=== PATIENT | female | born 1990 | race Caucasian/White ===

== ENCOUNTER 2017-05-18 14:01 | Inpatient (IN) | payer MEDICAID ==
--- NOTE | 2017-05-18 14:45 | EDPHY ---
H & P Stated Complaint: seizures - Personal History LMP (Females 10-55): Now Current Tetanus/Diphtheria Vaccine: Unsure Current Tetanus Diphtheria and Acellular Pertussis (TDAP): Unsure - Medical/Surgical History Hx Asthma: No Hx Chronic Respiratory Disease: No Hx Diabetes: No Hx Cardiac Disease: No Hx Renal Disease: No Hx Cirrhosis: No Hx Alcoholism: No Hx HIV/AIDS: No Hx Splenectomy or Spleen Trauma: No Other PMH: seizure disorder, bipolar, anxiety, - Social History Smoking Status: Never smoked Time Seen by Provider: 05/18/17 14:24 HPI/ROS: CHIEF COMPLAINT: Requesting mental health evaluation HISTORY OF PRESENT ILLNESS: 26-year-old female history of nonepileptic seizures , bipolar disorder, in the ER via private vehicle with her boyfriend who is also her medical power of environmental attorney who provides the majority of history. The medical power of environmental attorney describes for emergency department visits in the past 2 days, was discharged most recently this morning from seen at [facility] in [facility] where she had mental health evaluation in the emergency department or was felt that she did not meet criteria for emergency psychiatric admission. The boyfriend communicated with her psychiatrist Dr. Petey Kirby recommend she come to the emergency department at [facility] for possible psychiatric hospitalization. Boyfriend describes being in the [place] area to get away from multiple stressors related primarily to family issues. Patient has been experiencing episodic nonepileptic seizure-like activity which can be aborted by placing a cold pack on the patient or by calming her down. She has been experiencing hallucinations. Denies suicidal homicidal ideation. REVIEW OF SYSTEMS: A ten point review of systems was performed and is negative with the exception of the items mentioned in the HPI PAST MEDICAL & SURGICAL HISTORY: Bipolar disorder. Nonepileptic seizures. SOCIAL HISTORY:No alcohol or drug use PHYSICAL EXAM (Prior to examination, patient consented to physical exam, hands were washed and my usual and customary physical exam procedures followed) 1) GENERAL: Patient is wearing an eye patch over her right eye with sunglasses in place under a thick winter hat. She does not want to remove these. Well- developed, well-nourished, alert and oriented. Appears to be in no acute distress. 2) HEAD: Normocephalic, atraumatic 3) HEENT: Patient agrees to remove her sunglasses and eye patches temporarily and she has photophobia. Pupils equal, round, reactive to light bilaterally. Sclera anicteric. Nasopharynx, oropharynx, clear, no lesions. No signs of oral trauma 4) NECK: Full range of motion, no meningeal signs. 5) LUNGS: Clear auscultation bilaterally, no wheezes, no rhonchi, no retractions. 6) HEART: Regular rate and rhythm, no murmur, no heave, no gallop. 7) ABDOMEN: No guarding, no rebound, no focal tenderness n, 8) MUSCULOSKELETAL: Moving all extremities, no focal areas of tenderness, no obvious trauma. No peripheral edema or discoloration. 9) BACK: No CVA tenderness, no midline vertebral tenderness, no fluctuance, no step-off, no obvious trauma, no visual or palpable abnormality. 10) SKIN: No rash, no petechiae. 11) Psychiatric: Patient is oriented X 3, she appears anxious, she is withdraw. DIFFERENTIAL DIAGNOSIS: In no particular include but limited to pseudo-seizure , anxiety, jaylin, psychosis, (Shirley,Shaylee Marisela) Constitutional: Initial Vital Signs Temperature (C) 37 C 05/18/17 14:11 Heart Rate 87 05/18/17 14:11 Respiratory Rate 16 05/18/17 14:11 Blood Pressure 128/87 H 05/18/17 14:11 O2 Sat (%) 96 05/18/17 14:11 O2 Delivery Mode Room Air Allergies/Adverse Reactions: amoxicillin Allergy (Verified 05/18/17 14:09) Home Medications: Medication Instructions Recorded Clobazam [Onfi] 20 mg PO DAILY 05/18/17 Diazepam [Valium 10 MG (*)] 10 mg PO BID PRN 05/18/17 Ibuprofen [Motrin (*)] 200 mg PO DAILY 05/18/17 Propranolol HCl [Inderal 20mg (*)] 20 mg PO BID PRN 05/18/17 lamoTRIgine [Lamotrigine ER] 25 mg PO HS 05/18/17 Medical Decision Making ED Course/Re-evaluation: 2:52 p.m.: I have reviewed medical records from [facility] Emergency Department indicating a mental health evaluation earlier this morning at which point it was not felt that she met emergency psychiatric admission/ criteria for M1 hold. I will contact mental health promotions officer as I think that mental evaluation for emergency department is indicated at this time. 5:00 p.m.: Care turned over to Dr. Ron Somers at this time (Shaylee Watson) Patient has been evaluated by mental health and they feel the patient is psychotic. They have placed the patient on an M1 hold. They are looking for placement. Despite Ativan orally the patient is acting out and somewhat out of control. She is given Zyprexa and Benadryl IM Re-evaluation at 10:00 p.m. Patient is now sleeping (Ron Somers) Other Provider: 2300 care assumed by me from Dr. Somers pending placement. [address] Gatica. No issues during my care this patient overnight. (Milad Traore) 07:00 I assumed care of this patient at shift change. Placement pending. 07:12 Notified this patient has been accepted to N under the care of Dr. You , psychiatrist. (Chaitanya Gatica) Care Turn Over: Dr. Traore at 2300 (Ron Somers) - Data Points Laboratory Results: Laboratory Results 05/18/17 14:50 05/18/17 14:50 Medications Given: Discontinued Medications Diphenhydramine HCl (Benadryl Injection) 25 mg IM EDNOW ONE Stop: 05/18/17 21:35 Last Admin: 05/19/17 03:03 Dose: Not Given Lamotrigine (Lamictal) 25 mg PO EDNOW ONE Stop: 05/18/17 19:53 Last Admin: 05/18/17 21:13 Dose: Not Given Lorazepam (Ativan Injection) 2 mg IM EDNOW ONE Stop: 05/18/17 21:14 Last Admin: 05/18/17 21:14 Dose: 2 mg Olanzapine (Zyprexa Im Injection) 10 mg IM EDNOW ONE Stop: 05/18/17 21:33 Last Admin: 05/18/17 21:48 Dose: 10 mg Departure - Departure Clinical Impression: Acute psychosis Condition: Fair Referrals: JACINTO MENA [Primary Care Provider] - As per Instructions
[2017-05-18 15:00] LABS: PLATELET COUNT 262 10^3/uL (150-400)
[2017-05-18] MEDS ORDERED: lamoTRIgine 25 MG TAB PO ONE (19:52)
[2017-05-18] MEDS ORDERED: LORazepam 1 MG TAB PO PRN (19:53)
[2017-05-18] MEDS ORDERED: LORazepam 2 MG/ML INJ ONE (21:06)
[2017-05-18] MEDS ORDERED: LORazepam 2 MG/ML INJ IM ONE (21:13)
[2017-05-18] MEDS ORDERED: OLANZapine 10 MG/2 ML VIAL ONE ×2 (21:28→21:32)
[2017-05-18] MEDS ORDERED: OLANZapine 10 MG/2 ML VIAL IM ONE (21:32)
[2017-05-19] MEDS ORDERED: OLANZapine DISINTEGR 10 MG TAB PO PRN (10:16)
[2017-05-19] MEDS ORDERED: MAG HYDROX/AL HYDROX/SIMETH 30 ML UDCUP PO PRN (10:16)
[2017-05-19] MEDS ORDERED: MAGNESIUM HYDROXIDE 30 ML UDCUP PO PRN (10:16)
[2017-05-19] MEDS ORDERED: ACETAMINOPHEN 325 MG TAB PO PRN (10:16)
[2017-05-19] MEDS ORDERED: DIAZEPAM 5 MG TAB PO PRN ×2 (10:18→12:18)
[2017-05-19] MEDS ORDERED: hydrOXYzine HCL 25 MG TAB PO PRN ×2 (12:17→13:44)
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
[2017-05-19] MEDS ORDERED: LORazepam 1 MG TAB PO PRN (13:44)
--- NOTE | 2017-05-19 17:51 | BCON ---
[f rep st] BEHAVIORAL HEALTH CONSULTATION INTERNAL MEDICINE CONSULTATION. DATE OF CONSULTATION: 05/19/2017 REFERRING PHYSICIAN: Shirin You MD REASON FOR REFERRAL: Medical clearance for inpatient behavioral health stay. HISTORY OF PRESENT ILLNESS: This patient came to the emergency room yesterday on the advice of her outpatient psychiatrist. She had recently had 2 emergency visits in [facility] for increased nonepileptic seizure activity, as well as emotional stress and hallucinations. In [place], she was evaluated by the mental health team and admitted for further psychiatric care. She currently is without any acute complaints. PAST MEDICAL HISTORY: 1. Cholecystitis. 2. Left elbow fracture. 3. Concussions x2. PAST SURGICAL HISTORY: She has had surgical repair of the left elbow fracture, and she has had a cholecystectomy. MEDICATIONS: There is a list of medications determined by the pharmacy in the emergency department, including lorazepam, diazepam, ibuprofen, propranolol, and lamotrigine. However, per the psychiatrist note, she denies taking any recent medications. ALLERGIES: Amoxicillin. SOCIAL HISTORY: She lives with her parents. She has a 6-year-old son who is being cared for by her parents. She has a boyfriend with whom she was traveling. She is a nonsmoker and denies alcohol use. Her urine tox screen was positive for marijuana and benzodiazepines. FAMILY HISTORY: Noncontributory from the point of view of medical conditions at her current age. REVIEW OF SYSTEMS: She reports that she has had some involuntary weight loss due to a reduced appetite. She is not in pain. She denies cough or dyspnea. She denies chest pain or palpitations. She feels sleepy, having received sedating psychiatric medications. She reported, per other notes in the chart, that she had had very poor sleep over recent days to weeks. She denies dysuria or urinary frequency. Otherwise, a 10-point review of systems is negative. PHYSICAL EXAM: VITALS: Blood pressure is 121/67, heart rate is 65, respiratory rate is 17, oxygen saturation is 96% on room air, temperature is 36.7 degrees centigrade. Her weight is 95.3 kg, for a body mass index of 29.3. GENERAL: This is an overweight-appearing woman napping in bed. She slowly awakens and is overall cooperative. HEENT: There is a bandage with paper tape over her right forehead. The bandage is removed, and there is no bruising or other skin lesion under the bandage. Extraocular movements are intact. Pupils are equal, round, and reactive to light. Mucous membranes are moist. Dentition is in good condition. She has an uncrowded airway, Mallampati class 2. NECK: Supple. HEART: There is a regular rate and rhythm with no murmurs, rubs, or gallops. LUNGS: Clear to auscultation bilaterally. ABDOMEN: Benign. EXTREMITIES: There is no cyanosis, clubbing, or edema. NEUROLOGIC: She is alert and oriented to her general situation. Further orientation was not tested. Cranial nerves 2-12 are grossly intact. There is no focal weakness , and sensation is intact to light touch. LABORATORY STUDIES: Drawn in the emergency department. CBC was overall within normal limits. There was a minor decrement of relative and absolute eosinophils of no clinical significance. Serum chemistry showed an elevated chloride and a reduced carbon dioxide, again of no clinical significance. Otherwise, renal function and electrolytes were normal. Hemoglobin A1c was normal at 4.9. Liver function tests were normal. She had a low cholesterol at 136, HDL was 48, and LDL was 81. TSH was normal at 2.18. Beta hCG was negative for . Toxicology screen in the serum was negative for ethyl alcohol and, in the urine, was non-negative for marijuana and benzodiazepines but otherwise negative for substances of abuse. ASSESSMENT/RECOMMENDATIONS: 1. Psychiatric issues, pending further evaluation by Psychiatry and the mental health team. 2. Overweight with some weight loss. Consider exercising caution regarding medications which could cause further weight gain. However, metabolically she is currently quite benign. Encouraged regular exercise. 3. Weight loss due to reduced appetite, likely due to psychiatric stress. 4. Nonepileptic seizures. These are best managed nonmedically, in terms of anticonvulsants, but with attention to the psychiatric issues which underlie them. If she presents with seizures, advise seeking history of prior evaluation and diagnosis. Ideally, she would have been diagnosed in an epilepsy monitoring unit where epileptic versus nonepileptic seizures could be distinguished based on video monitoring and continuous EEG. I see no medical contraindications to this patient's continued stay on the inpatient behavioral health unit or to any psychiatric medications or procedures. Thank you very much for including me in the care of this patient, and please do not hesitate to contact me or the hospitalist service should there be need for further medical evaluation. /[id number]/MODL MTDD
[2017-05-19] MEDS ORDERED: FLU VACC QS 2017-18 (3YR+)/PF 0.5 ML SYR (FLUARIX QUAD) IM ONE (20:49)
[2017-05-19] MEDS ORDERED: OLANZapine DISINTEGR 10 MG TAB PO SCH (21:00)
[2017-05-20] MEDS ORDERED: LORazepam 1 MG TAB PO PRN (09:21)
[2017-05-20] MEDS ORDERED: LORazepam 0.5 MG TAB PO PRN (09:28)
[2017-05-20] MEDS ORDERED: IBUPROFEN 200 MG TAB PO PRN (10:31)
--- NOTE | 2017-05-20 14:10 | SOAPPROG ---
SOAP Progress Note Assessment/Plan: Assessment: Bipolar Disorder type I MRE manic severe with psychotic features Seizure Disorder (Possible Complex Partial Seizures with RUE movements and altered consciousness) and/or Conversion Disorder Cannabis Use Disorder - severe Probable Migraine headaches Patient admitted to [facility] on M-1 after four prior ER visits for erratic mood/ behavior symptoms, psychotic thinking along with episodic altered consciousness and abnormal repetitive movements. Plan: Short Term Certification - grave disability due to recent manic/impulsive symptoms, disorganization, and recent psychotic symptoms Patient needs baseline Head CT and EEG monitoring to clarify neurological diagnosis. Called report to PA in [facility] ER. Continue Olanzapine ODT/Zydis 10mg QHS, patient appears less manic and more organized Patient requested PRN Ibuprofen 200mg for headaches 05/20/17 14:17 Subjective: CC: "'a little more calm and relaxed' 'better frame of mind' Patient reports sleeping well with Olanzapine and feels improved with better mood. Reports episodes of altered consciousness and feeling tingling in RUE as well as having headache, light sensitivity in right eye. Unable to explain events leading to hospitalization. Unable to continue interview due to non- responsiveness. Objective: Vital Signs Temp Pulse Resp BP Pulse Ox 36.6 C 98 17 129/70 H 95 05/20/17 13:13 05/20/17 13:13 05/20/17 13:13 05/20/17 13:13 05/20/17 13:13 Alert WF with patch over right eye. Speech RRR, less pressured and less rapid. Mood 'a little more calm and relaxed' 'better frame of mind' Affect restricted. Thoughts briefly organized with poverty of detail and occasional loose association. Denies AH or paranoia. Poor insight. Staff report patient labile on unit - dysphoric, tearful at times, other times euphoric and singing, able to attend groups. Patient has had four witnessed episodes: Reporting feeling anxious and weak and discontinued, odd staring, shaking of RUE followed by unresponsiveness but normal vital signs. No falling or incontinence. - Time Spent With Patient Time Spent With Patient: 20 minutes - Pending Discharge Pending Discharge Within 24 Hours: No Pending Discharge Within 48 Hours: No ICD10 Worksheet Patient Problems: Problems Problem Status Onset Acute psychosis Acute Bipolar disorder (manic depression) Acute Cannabis use disorder, severe, dependence Acute Conversion disorder Acute Migraine Acute
[2017-05-20 14:30] VITALS: TEMP 97.9
[2017-05-20 15:05] LABS: CREATINE KINASE 93 IU/L (0-156)
[2017-05-20 15:32] VITALS: BP 148/88; PULSE 83; RESP 17; O2SAT 95
--- NOTE | 2017-05-21 08:48 | BDS ---
[f rep st] BEHAVIORAL HEALTH DISCHARGE SUMMARY IDENTIFICATION: This is a 26-year-old, single, white female who lives with her parents and her 6-year-old son, Calixto, in [place], [place]. Her parents reportedly have guardianship of her son. She is currently unemployed. Date of admission was May 19, 2017, date of discharge is May 20, 2017. REASON FOR ADMISSION: Please see initial psychiatric evaluation from May 19, 2017. The patient was taken to the emergency room by her boyfriend. The patient had 4 emergency room visits in the 2 weeks prior to admission for altered mental status, abnormal movements, disorganized behavior, and mood lability. The patient was admitted on an M1 hold to the inpatient unit. In the emergency room, she was agitated, grandiose, reporting auditory hallucinations. She destroyed a clock on the wall, disrobed and walked around naked. She received Ativan and Zyprexa in the emergency room. HOSPITAL COURSE: After admission, the patient did sleep overnight after getting Zyprexa and Ativan in the emergency room. Her initial evaluation she appeared labile and tangential and disorganized. She was briefly agitated with rapid pressured speech, flight of ideas, tangential thinking, other times she was dysphoric and tearful. She reported thoughts of wanting to be , but denied thoughts to hurt herself. She denied thoughts to hurt others. She minimized further auditory hallucinations after being admitted to the inpatient unit. She was agreeable to continue olanzapine 10 mg at night. Her outpatient psychiatrist reported the patient had multiple ER visits for possible seizure activity and altered mental status along with bipolar symptoms. She had been getting intermittent Ativan and Valium over the previous 2 weeks for possible seizures. On the unit the patient was witnessed to have altered mental status with abnormal mentation, disorganized thinking, abnormal staring to the left and abnormal movements on her right upper extremity. This appeared possibly consistent with a complex partial seizure disorder, even though in the emergency room she reportedly had been diagnosed with pseudoseizures or conversion disorder but referred to an outpatient neurologist. Due to having multiple episodes of possible seizure activity on the inpatient unit, the patient was then referred back to the [facility] Emergency Department with a request for her to have a neurology workup for possible epilepsy. After discharge to the [facility] Emergency Room, the emergency room reported that the patient would be admitted to [facility] in [place], [place], for EEG monitoring. Of note, prior to admission, the patient reported using cannabis daily. It is unclear if this was the cause of her auditory hallucinations. On the unit the patient did not have any violent or self-injurious behavior, did not require restraints or seclusion. PAST MEDICAL HISTORY: She has an IUD for control. She has a history of left elbow surgery, cholecystectomy, and wisdom teeth extraction as well as 2 concussions around age 10 or 11, one from a trampoline accident and one from falling off a horse. ALLERGIES: She is allergic to amoxicillin. PAST PSYCHIATRIC HISTORY: The patient had a psychiatric hospitalization at [facility] in [place] in February 2016. She was diagnosed with bipolar disorder, prescribed lithium. As an outpatient she has been seeing a private psychiatrist, Dr. Posada, and recently had been on Latuda for bipolar disorder , but had akathisia and the dose was reduced. She had intermittently been taking benzodiazepines and propranolol for akathisia the past year. CONDITION ON DISCHARGE: She is an alert white female in no acute distress. She is ambulatory, cooperative. She has had episodes of altered consciousness and staring and abnormal movements in her right upper extremity, possibly consistent with a complex partial seizure. Her thoughts are tangential and somewhat disorganized. She denies thoughts to hurt herself or others or paranoia or hallucinations at this point. Her insight appears to be limited. Her memory appears to be poor regarding recent events. Her judgment appears to be questionable. LEGAL STATUS: The patient was admitted on M1 hold, placed on short-term certification on May 20, 2017. This is to make sure the patient does not elope from the emergency room or from the medical floor while she is getting a neurology evaluation. The patient should be admitted back to [address] [place] [address] inpatient psychiatric unit at [facility] after clearance by Neurology. ADVANCED DIRECTIVES: patient does not have a formal advanced directive. Her father [phone] was notified of the patients admission and discharge. The patient requested that her boyfriend Jareth [phone] be notified of her treatment plans and be involved in her discharge planning. He was notified of her admission and discharge. LABS: Her urine tox screen is positive for cannabis and benzodiazepines, negative for other drugs of abuse and alcohol. Her serum beta HCG was negative. White blood cell count 6.4, hemoglobin 14.4, platelet count 262. Sodium 145, potassium 4.2, creatinine 0.9, glucose 86, calcium 9.3, hemoglobin A1c 4.9, calcium 9.3, AST 23, ALT 21, creatine kinase 93, triglycerides 35, LDL 81, HDL 48, TSH 2.1. PROCEDURES: None. LABS PENDING: None. DISCHARGE DIAGNOSES: Bipolar disorder type 1, most recent episode manic, severe with psychotic features. Cannabis use disorder, severe. Rule out cannabis related psychotic disorder. 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 Rule out catatonia. DISCHARGE MEDICATIONS: Olanzapine 10 mg p.o. at bedtime, Ativan 0.5 mg p.o. q.4 hours p.r.n. for anxiety. DISPOSITION: The patient is being transported to [facility] Emergency Room with recommendation the patient have a neurology evaluation for possible complex partial seizures versus conversion disorder. The patient is on a short-term certification dated May 20, 2017. She should be readmitted to [address] [place] [address] on this certification after clearance by Neurology. She is reportedly going to be transferred to [facility] for EEG monitoring. /[id number]/MODL MTDD
== END 2017-05-20 20:44 | disposition short-term general hospital (02) | DRG 885 ==
LOC: BBEH 05-19 09:47
PROVIDERS: ADMIT Psychiatry & Neurology Behavioral Neurology & Neuropsychiatry
DX: F31.2 Bipolar disorder, current episode manic severe with psychotic features (principal); G40.409 Other generalized epilepsy and epileptic syndromes, not intractable, without status epilepticus; E66.3 Overweight; F12.90 Cannabis use, unspecified, uncomplicated; Z56.0 Unemployment, unspecified
CPT/HCPCS: 80305; G0008; G0480; J2060

== ENCOUNTER 2017-05-20 14:44 | Emergency (ER) | payer MEDICAID ==
[2017-05-20] MEDS ORDERED: LORazepam 2 MG/ML INJ IVP ONE (15:03)
[2017-05-20] MEDS ORDERED: NS 1,000 ML IV ONE ×2 (15:03→19:38)
--- NOTE | 2017-05-20 15:07 | EDPHY ---
H & P Time Seen by Provider: 05/20/17 14:54 HPI/ROS: CHIEF COMPLAINT: Pseudoseizures HISTORY OF PRESENT ILLNESS: Patient is a 26-year-old female who was admitted to [address] [place] [address] being treated for bipolar. She has been on Lamictal and Ativan and recently either switched to or added Zyprexa. She states that she has been having seizures since 2016 . She states that she is having up to 5 per day and they correlate with stress. She has been stressed during her hospitalization. She states that this started a tingling in the top of her head and then she has a "shift in her vision" she then developed spasming in all of her extremities and extreme blinking. She remains conscious during these episodes. She states that she has had 5 of them today and they typically last for about 30 sec. She does not bite her tongue and does not become incontinent. She states this is because she has an extreme fear of wetting herself. She has not had a fever or any trauma. She was sent here from the psychiatric unit to rule out a seizure disorder. She is wearing a patch over her right eye. She reports chronic sensitivity in her right eye and that when exposed to light that exacerbates her she is worse. REVIEW OF SYSTEMS: Constitutional: denies: chills, fever, recent illness, recent injury EENTM: denies: blurred vision, double vision, nose congestion Respiratory: denies: cough, shortness of breath Cardiac: denies: chest pain, irregular heart rate, lightheadedness, palpitations Gastrointestinal/Abdominal: denies: abdominal pain, diarrhea, nausea, vomiting, blood streaked stools Genitourinary: denies: dysuria, frequency, hematuria, pain Musculoskeletal: denies: joint pain, muscle pain Skin: denies: lesions, rash, jaundice, bruising Neurological: See HPI denies: headache, numbness, paresthesia, tingling, dizziness, weakness Hematologic/Lymphatic: denies: blood clots, easy bleeding, easy bruising Immunologic/allergic: denies: HIV/AIDS, transplant EXAM: GENERAL: Well-appearing, well-nourished and in no acute distress. HEAD: Atraumatic, normocephalic. EYES: Pupils equal round and reactive to light, extraocular movements intact, sclera anicteric, conjunctiva are normal. ENT: TMs normal, nares patent, oropharynx clear without exudates. Moist mucous membranes. NECK: Normal range of motion, supple without lymphadenopathy or JVD. LUNGS: Breath sounds clear to auscultation bilaterally and equal. No wheezes rales or rhonchi. HEART: Regular rate and rhythm without murmurs, rubs or gallops. ABDOMEN: Soft, nontender, normoactive bowel sounds. No guarding, no rebound. No masses appreciated. BACK: No CVA tenderness, no spinal tenderness, step-offs or deformities EXTREMITIES: Normal range of motion, no pitting or edema. No clubbing or cyanosis. NEUROLOGICAL: Cranial nerves II through XII grossly intact. Normal speech, normal gait. 5/5 strength, normal movement in all extremities, normal sensation PSYCH: Normal mood, normal affect. SKIN: Warm, dry, normal turgor, no visible rashes or lesions. Source: Patient Exam Limitations: No limitations - Medical/Surgical History Hx Asthma: No Hx Chronic Respiratory Disease: No Hx Diabetes: No Hx Cardiac Disease: No Hx Renal Disease: No Hx Cirrhosis: No Hx Alcoholism: No Hx HIV/AIDS: No Hx Splenectomy or Spleen Trauma: No Other PMH: seizure disorder, bipolar, anxiety, - Family History Significant Family History: No pertinent family hx - Social History Smoking Status: Never smoked Alcohol Use: Sober Drug Use: None Constitutional: Initial Vital Signs Temperature (C) 37.1 C 05/20/17 15:09 Heart Rate 93 05/20/17 15:09 Respiratory Rate 16 05/20/17 15:09 Blood Pressure 129/81 H 05/20/17 15:09 O2 Sat (%) 97 05/20/17 15:09 O2 Delivery Mode Room Air Allergies/Adverse Reactions: amoxicillin Allergy (Verified 05/18/17 14:09) Home Medications: Medication Instructions Recorded Diazepam [Valium 10 MG (*)] 10 mg PO BID PRN 05/18/17 lamoTRIgine [Lamotrigine ER] 25 mg PO HS 05/18/17 OLANZapine DISINTEGR [ZyPREXA 10 mg PO HS tab 05/20/17 ZYDIS (*)] Medical Decision Making - Diagnostics Imaging Results: Imaging Impressions Head CT 05/20/17 15:03 Impression: No acute intracranial findings. If symptoms persist and clinical suspicion warrants, consider MRI. Findings discussed with CYNDI LAYTON 05/20/2017 at 16:04. Imaging: Discussed imaging studies w/ refinery superintendent Radiologist ED Course/Re-evaluation: I spoke with Dr. Vaz from [address] [place] [address]. He states that what he witnessed seemed more like a partial complex seizure. The patient was shaking primarily her right arm and staring and had altered mental status during the episode. She did not go completely out consciousness or fall to the ground but he is concerned about partial complex seizures. I asked him if he was requesting continuous EEG monitoring because that would require transfer to [facility]. He stated that whenever the neurologist deems necessary. 4:25 p.m. the patient's lab work and CT scan are reassuring. She has not had any events here in the ER. I discussed the case with Dr. Wyatt Morton who recommends transfer to [facility] for continuous EEG monitoring. 5:35 p.m. I discussed the case with Dr. Byrd a neurologist from [facility]. She accepts the patient to the neuro floor [address] [place] [address]. She understands that the patient is on a hold. 4:45 p.m. I discussed the case with Dr. Cohn a hospitalist at [facility] will accept. Differential Diagnosis: Partial list of the Differential diagnosis considered include but were not limited to; complex partial seizures, pseudoseizures, bipolar and although unlikely based on the history and physical exam, I also considered head injury, infection. - Data Points Laboratory Results: Laboratory Results 05/20/17 15:25 05/20/17 15:25 05/20/17 05/20/17 15:25 15:25 WBC 8.09 10^3/uL 10^3/uL (3.80-9.50) RBC 5.00 10^6/uL 10^6/uL (4.18-5.33) Hgb 14.8 g/dL g/dL (12.6-16.3) Hct 42.7 % % (38.0-47.0) MCV 85.4 fL fL (81.5-99.8) MCH 29.6 pg pg (27.9-34.1) MCHC 34.7 g/dL g/dL (32.4-36.7) RDW 13.0 % % (11.5-15.2) Plt Count 285 10^3/uL 10^3/uL (150-400) MPV 9.2 fL fL (8.7-11.7) Neut % (Auto) 69.5 % % (39.3-74.2) Lymph % (Auto) 22.7 % % (15.0-45.0) Weber % (Auto) 6.8 % % (4.5-13.0) Eos % (Auto) 0.2 % L % (0.6-7.6) Baso % (Auto) 0.6 % % (0.3-1.7) Nucleat RBC Rel Count 0.0 % % (0.0-0.2) Absolute Neuts (auto) 5.61 10^3/uL 10^3/uL (1.70-6.50) Absolute Lymphs (auto) 1.84 10^3/uL 10^3/uL (1.00-3.00) Absolute Monos (auto) 0.55 10^3/uL 10^3/uL (0.30-0.80) Absolute Eos (auto) 0.02 10^3/uL L 10^3/uL (0.03-0.40) Absolute Basos (auto) 0.05 10^3/uL 10^3/uL (0.02-0.10) Absolute Nucleated RBC 0.00 10^3/uL 10^3/uL (0-0.01) Immature Gran % 0.2 % % (0.0-1.1) Immature Gran # 0.02 10^3/uL 10^3/uL (0.00-0.10) Sodium 143 mEq/L mEq/L (135-145) Potassium 3.8 mEq/L mEq/L (3.5-5.2) Chloride 106 mEq/L mEq/L (97-110) Carbon Dioxide 22 mEq/l mEq/l (22-31) Anion Gap 15 mEq/L mEq/L (8-16) BUN 10 mg/dL mg/dL (7-23) Creatinine 0.9 mg/dL mg/dL (0.6-1.0) Estimated GFR > 60 Glucose 88 mg/dL mg/dL (70-100) Calcium 10.0 mg/dL mg/dL (8.5-10.4) Medications Given: Discontinued Medications Sodium Chloride (Ns) 1,000 mls @ 0 mls/hr IV ONCE ONE; Wide Open PRN Reason: Protocol Stop: 05/20/17 15:04 Last Admin: 05/20/17 15:29 Dose: 1,000 mls Sodium Chloride (Ns) 1,000 mls @ 0 mls/hr IV ONCE ONE PRN Reason: Wide Open Stop: 05/20/17 19:39 Last Admin: 05/20/17 19:43 Dose: 1,000 mls Lorazepam (Ativan Injection) 1 mg IVP EDNOW ONE Stop: 05/20/17 15:04 Last Admin: 05/20/17 15:29 Dose: 1 mg Departure - Departure Disposition: [facility] Clinical Impression: Pseudoseizure Bipolar disorder (manic depression) Qualifiers: Active/Remission status: currently active Current bipolar episode type: manic Current episode severity: severe Psychotic features: with psychotic features Qualified Code(s): F31.2 - Bipolar disorder, current episode manic severe with psychotic features Condition: Fair Referrals: JACINTO MENA [Primary Care Provider] - As per Instructions
[2017-05-20 15:12] VITALS: RESP 16
[2017-05-20 15:39] LABS: PLATELET COUNT 285 10^3/uL (150-400)
[2017-05-20 17:23] VITALS: BP 109/78; TEMP 96.8
[2017-05-20 18:45] VITALS: PULSE 88; O2SAT 98
== END 2017-05-20 20:46 | disposition short-term general hospital (02) ==
LOC: EDUNIT#
DX: F44.5 Conversion disorder with seizures or convulsions (principal); F31.2 Bipolar disorder, current episode manic severe with psychotic features; E86.9 Volume depletion, unspecified
CPT/HCPCS: 96374; J2060

== ENCOUNTER 2017-05-24 12:22 | Inpatient (IN) | payer MEDICAID ==
--- NOTE | 2017-05-24 14:16 | SOAPPROG ---
SOAP Progress Note Assessment/Plan: Assessment: Bipolar Disorder type I MRE manic severe with psychotic features Conversion Disorder Reviewed records from [facility] EEG lab and spoke to nurse in that lab. Patient given Propranolol 10mg BID and Lamictal 300mg QHS over past 72 hours, benzodiazepine sedatives held. Patient had multiple episodes of abnormal behavior and staring and shaking but had completely normal EEGs and is now diagnosed with Pseudo-Seizures (Conversion Disorder). Patient is being transferred back to [facility] inpatient unit. Discussed with patients outpatient psychiatrist Dr. Posada. Patient was only on 25mg of Lamictal prior to [facility] admission. Patient has been on benzodiazepines PRN for 3 weeks with some benefit, including Valium, Ativan, and Onfi. Reviewed plan to hold Lamictal due to risk of Lyle Kofi Syndrome (recent high dose of Lamictal given at [facility]), continue Olanzapine 10mg QHS for recent jaylin (was destroying property, disrobing/naked, hallucinating in ER prior to recent [facility] admit), and schedule Valium 5mg BID[address] Dr. Posada reports patient was previously stable on Latuda but complained of akathisia/anxiety symptoms Plan: Patient will be re-admitted to [facility] on Short Term Certification dated 05/20/17 for grave disability Continue Olanzapine ODT 10mg QHS Valium 5mg BID to reduce risk of anticonvulsant withdrawal and history of severe anxiety/agitation Continue Propranolol 10mg BID for history of akathisia Safety (Q15min) precautions Reviewed plan with [facility] nurses and Dr. Posada. 05/24/17 14:06 - Time Spent With Patient Time Spent With Patient: Zero - Pending Discharge Pending Discharge Within 24 Hours: No Pending Discharge Within 48 Hours: No ICD10 Worksheet Patient Problems: Problems Problem Status Onset Acute psychosis Acute Cannabis use disorder, severe, dependence Acute Conversion disorder Acute Migraine Acute
[2017-05-24] MEDS ORDERED: MAGNESIUM HYDROXIDE 30 ML UDCUP PO PRN (20:37)
[2017-05-24] MEDS ORDERED: FAMOTIDINE 20 MG TAB PO PRN (20:38)
[2017-05-24] MEDS ORDERED: PROPRANOLOL HCL 10 MG TAB PO SCH (21:00)
[2017-05-24] MEDS: OLANZapine DISINTEGR 10 MG TAB PO SCH ×2 (21:06→21:21)
[2017-05-24] MEDS: DIAZEPAM 5 MG TAB PO SCH (21:06)
[2017-05-25] MEDS: PROPRANOLOL HCL 10 MG TAB PO SCH ×2 (09:00→21:35)
[2017-05-25] MEDS: DIAZEPAM 5 MG TAB PO SCH ×2 (09:00→21:35)
[2017-05-25] MEDS: LURASIDONE HCL 20 MG TAB PO SCH ×2 (09:01→21:36)
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
[2017-05-25] MEDS: ACETAMINOPHEN 325 MG TAB PO PRN (13:20)
[2017-05-25] MEDS ORDERED: GABAPENTIN 300 MG CAP PO ONE (13:30)
[2017-05-25] MEDS ORDERED: GABAPENTIN 300 MG CAP PO PRN (13:30)
[2017-05-25] MEDS ORDERED: SUMAtriptan 25 MG TAB PO PRN (13:30)
[2017-05-25] MEDS: diphenhydrAMINE 25 MG CAP PO PRN (16:36)
[2017-05-26] MEDS: PROPRANOLOL HCL 10 MG TAB PO SCH (09:49)
[2017-05-26] MEDS: DIAZEPAM 5 MG TAB PO SCH (09:50)
[2017-05-26] MEDS: ACETAMINOPHEN 325 MG TAB PO PRN (09:50)
[2017-05-26] MEDS: LURASIDONE HCL 20 MG TAB PO SCH (10:10)
[2017-05-26] MEDS ORDERED: DIAZEPAM 5 MG TAB PO PRN (11:10)
--- NOTE | 2017-05-26 11:30 | SOAPPROG ---
SOAP Progress Note Assessment/Plan: Assessment: Bipolar Disorder type I MRE manic severe with psychotic features Conversion Disorder History of cannabis abuse Akathisia/Restlessness Migraine Headaches IUD History of left elbow surgery, cholecystectomy, 2 concussions. Patient appears manic with tangential thinking and disorganized behavior. Patient refused Latuda last night and this AM with complaints of restlessness. Patient may be a slow metabolizer of medications. Patient at risk for Lyle-Kofi Syndrome due to receiving Lamictal 300mg weekend of May 21 while in [facility] EEG monitoring unit. Plan: Short Term Certification Education about bipolar disorder Discontinue Latuda Start Seroquel 12.5mg QAM and 25mg QHS. Discussed risk of EPS, tardive dyskinesia, metabolic syndrome, defects, sedation. Schedule Gabapentin 300mg TID for migraine prevention and akathisia Change Propranolol 5mg BID PRN restlessness Change Valium 5mg BID PRN severe anxiety Benadryl 25mg PRN itching or mild anxiety Monitor mood stability, thought organization, behavior 05/26/17 11:30 Subjective: CC: "I have a lot of anxiety, I think I have akathisia, the Latuda makes me inside, what about the Lamictal, the Gabapentin helped me, can I drive on it, I think I have bipolar disorder but I'm not depressed, just anxious, I need to sleep, I need something to sleep" Patient is a poor historian due to flight of ideas and tangential, disorganized thinking. Reports she doesn't want to take Latuda and had felt she was restless from 20mg dose yesterday AM. Reports not willing to retry Bellamy, reports LE edema. Reports talking Olanzapine during hospitalization in Feb 2016 'but it made me feel tired and inside.' Reports reduced headache today and wants to take Gabapentin for Migraines. Reports feeling tired when taking propranolol. Agrees to need to take Bipolar Disorder medications but is fearful of side effects. Objective: Vital Signs Temp Pulse Resp BP Pulse Ox 36.6 C 77 16 98/65 L 98 05/26/17 04:45 05/26/17 09:49 05/26/17 04:45 05/26/17 09:49 05/26/17 04:45 Alert tall WF. Ambulatory, restless at times. Speech loud, rapid at times. Thoughts tangential with flight of ideas and loose associations. Denies SI or HI or AH. Mood 'anxious' affect labile. Limited insight. Questionable judgment. Staff report patient slept 6 hours. Took PRN Gabapentin 300mg yesterday with benefit. Took PRN Benadryl 25mg for anxiety and itching yesterday. Took AM Latuda yesterday, refused PM dose yesterday, took AM dose today. Disorganized behavior with labile affect - singing at times, other times dysphoric with bizarre behavior. - Time Spent With Patient Time Spent With Patient: 30 minutes - Pending Discharge Pending Discharge Within 24 Hours: No Pending Discharge Within 48 Hours: No ICD10 Worksheet Patient Problems: Problems Problem Status Onset Acute psychosis Acute Cannabis use disorder, severe, dependence Acute Conversion disorder Acute Migraine Acute
[2017-05-26] MEDS: QUEtiapine FUMARATE 25 MG TAB PO SCH ×2 (12:07→21:22)
[2017-05-26] MEDS: GABAPENTIN 300 MG CAP PO SCH ×2 (16:57→21:21)
[2017-05-27] MEDS: QUEtiapine FUMARATE 25 MG TAB PO SCH ×2 (08:19→21:11)
[2017-05-27] MEDS: GABAPENTIN 300 MG CAP PO SCH ×3 (08:20→21:12)
[2017-05-27] MEDS: ACETAMINOPHEN 325 MG TAB PO PRN (08:36)
--- NOTE | 2017-05-27 08:50 | SOAPPROG ---
SOAP Progress Note Assessment/Plan: Assessment: Bipolar Disorder type I MRE manic severe with psychotic features Conversion Disorder History of cannabis abuse Akathisia/Restlessness Migraine Headaches IUD History of left elbow surgery, cholecystectomy, 2 concussions. Patient may be a slow metabolizer of medications. Patient has better insight today and tolerated Seroquel yesterday. Patient has continued manic symptoms with erratic and bizarre behavior on unit and poor hygiene. Plan: Short Term Certification Education about bipolar disorder Continue Seroquel 12.5mg QAM and 25mg QHS, started 05/26/17. Consider increasing tomorrow if tolerating. Continue Gabapentin 300mg TID for migraine prevention and akathisia Continue Propranolol 5mg BID PRN restlessness; continue Valium 5mg BID PRN severe anxiety Benadryl 25mg PRN itching or mild anxiety Ibuprofen 200mg PRN migraine Monitor mood stability, thought organization, behavior Discussed [facility] for primary care after discharge in [place] Discussed low sugar diet, exercise due to risk of metabolic syndrome; dietary consult Restart Lamictal 25mg QHS. Discussed risk of life-threatening Lyle-Kofi Syndrome 05/27/17 08:53 Subjective: CC: "better but I think I'm psychosomatic." Patient reports tolerating Seroquel and slept well last night. Unable to explain episode of throwing herself on the ground yesterday then later getting up and walking away with complaints of not receiving attention/care. Requests PRN Ibuprofen 200mg for Migraine. Reports continuing to have racing thoughts and mood swings and feeling anxious. Requests Lamictal be restarted, reports feeling less agitated when taking. Denies any signs/symptoms of rash and denies itching. Denies feeling tired/sedated by Seroquel or Lamictal. Requests dietary consult. Requests help getting a PCP and independent housing after discharge. Denies paranoia or AH or violent thoughts or suicidal thoughts. Reports she was close to her aunt, who in Mar 2017 of a CVA, ' thats when I went on a downward spiral and started having seizures.' Objective: Vital Signs Temp Pulse Resp BP Pulse Ox 36.4 C 80 16 115/66 96 05/27/17 01:44 05/27/17 01:44 05/27/17 01:44 05/27/17 01:44 05/27/17 01:44 ALert WF, disheveled and malodorous and disheveled. Speech loud, pressured, rapid. Thoughts tangential with flight of ideas. Denies AH or paranoia or SI or HI. Mood "better but I think I'm psychosomatic." Affect euthymic, briefly agitated. Insight improved but limited. Judgment questionable. Staff report patient cooperative with Seroquel and Gabapentin yesterday. Had one episode of throwing herself on the ground, then getting up and walking to room when staff were not responding and complaining of not receiving attention. Patient observed with labile behavior - singing, on exercise bike, social with patients and staff, later dyphoric and anxious and tearful. - Time Spent With Patient Time Spent With Patient: 30 minutes - Pending Discharge Pending Discharge Within 24 Hours: No Pending Discharge Within 48 Hours: No ICD10 Worksheet Patient Problems: Problems Problem Status Onset Bipolar affective, manic, severe w/ psych Acute Conversion disorder Acute Migraine Acute Cannabis use disorder, severe, dependence Acute
[2017-05-27] MEDS: PROPRANOLOL HCL 10 MG TAB PO PRN (13:13)
[2017-05-27] MEDS: diphenhydrAMINE 25 MG CAP PO PRN (13:13)
[2017-05-27] MEDS ORDERED: QUEtiapine FUMARATE 25 MG TAB PO PRN (14:30)
[2017-05-27] MEDS: lamoTRIgine 25 MG TAB PO SCH (21:11)
[2017-05-28] MEDS: GABAPENTIN 300 MG CAP PO SCH ×3 (08:15→21:19)
[2017-05-28] MEDS: QUEtiapine FUMARATE 25 MG TAB PO SCH ×2 (08:15→21:18)
[2017-05-28] MEDS ORDERED: QUEtiapine FUMARATE 25 MG TAB PO ONE (11:14)
--- NOTE | 2017-05-28 11:16 | SOAPPROG ---
SOAP Progress Note Assessment/Plan: Assessment: Bipolar Disorder type I MRE manic severe with psychotic features Conversion Disorder History of cannabis abuse Akathisia/Restlessness Migraine Headaches IUD History of left elbow surgery, cholecystectomy, 2 concussions. Patient may be a slow metabolizer of medications. Patient has better insight today and tolerated Seroquel yesterday. Patient has continued manic symptoms with erratic and bizarre behavior on unit and poor hygiene. Plan: Short Term Certification Education about bipolar disorder Continue Seroquel 12.5mg QAM and 25mg QHS, started 05/26/17. Consider increasing tomorrow if tolerating. Continue Gabapentin 300mg TID for migraine prevention and akathisia Continue Propranolol 5mg BID PRN restlessness; continue Valium 5mg BID PRN severe anxiety Benadryl 25mg PRN itching or mild anxiety Ibuprofen 200mg PRN migraine Monitor mood stability, thought organization, behavior Discussed [facility] for primary care after discharge in [place] Discussed low sugar diet, exercise due to risk of metabolic syndrome; dietary consult Restart Lamictal 25mg QHS. Discussed risk of life-threatening Lyle-Kofi Syndrome 05/27/17 08:53 Objective: Vital Signs Temp Pulse Resp BP Pulse Ox 36.4 C 82 16 104/65 98 05/28/17 07:18 05/27/17 20:00 05/28/17 07:18 05/28/17 07:18 05/28/17 07:18 - Time Spent With Patient Time Spent With Patient: 30 minutes - Pending Discharge Pending Discharge Within 24 Hours: No Pending Discharge Within 48 Hours: No ICD10 Worksheet Patient Problems: Problems Problem Status Onset Bipolar affective, manic, severe w/ psych Acute Cannabis use disorder, severe, dependence Acute Conversion disorder Acute Migraine Acute
--- NOTE | 2017-05-28 11:22 | SOAPPROG ---
SOAP Progress Note Assessment/Plan: Assessment: Bipolar Disorder type I MRE manic severe with psychotic features Conversion Disorder History of cannabis abuse Akathisia/Restlessness Migraine Headaches IUD History of left elbow surgery, cholecystectomy, 2 concussions. Patient may be a slow metabolizer of medications. Reports past SE from [place] , Zyprexa, Latuda. Patient has better insight today and tolerated Seroquel for 48 hours. Patient has continued manic symptoms but appears more organized than previous. Plan: Short Term Certification Education about bipolar disorder Increase Seroquel 25mg QAM and 50mg QHS, started 05/26/17. Continue Lamictal 25mg PO QHS, discussed risk of Lyle Kofi Syndrome Continue Gabapentin 300mg TID for migraine prevention and akathisia Continue Propranolol 5mg BID PRN restlessness; continue Valium 5mg BID PRN severe anxiety Benadryl 25mg PRN itching or mild anxiety Ibuprofen 200mg PRN migraine Monitor mood stability, thought organization, behavior Discussed [facility] for primary care after discharge in [place] Discussed low sugar diet, exercise due to risk of metabolic syndrome; dietary consult Family meeting 05/28/17 11:23 Subjective: CC: "I think I am rapid cycling, I have anxiety, my aunt , I know I have high intelligence, no one knew I had akathisia, I was stressed because my aunt and I have a 6 year old." Patient reports sleeping well last night and denies feeling sedated. Requested PRN medication for anxiety this AM 'I feel stressed out and anxious.' Endorses mood swings, being hyperverbal and impulsive. Agrees to take increased Seroquel and have family meeting with father. Denies violent or suicidal thoughts. Objective: Vital Signs Temp Pulse Resp BP Pulse Ox 36.4 C 82 16 104/65 98 05/28/17 07:18 05/27/17 20:00 05/28/17 07:18 05/28/17 07:18 05/28/17 07:18 Alert WF, cooperative. Speech rapid. thoughts tangential with flight of ideas. Denies SI or HI or AH. Grandiose content. Mood 'rapid cycling, a lot of anxiety.' Anxious affect, labile at times. Limited/poor insight. Questionable judgment. Staff report patient slept 6.5 hours. Cooperative with medication. Got PRN Valium, Propranolol, Benadryl yesterday for severe agitation. Has been loud and hyperverbal on unit but able to attend groups. Intrusive with other patients. - Time Spent With Patient Time Spent With Patient: 30 minutes - Pending Discharge Pending Discharge Within 24 Hours: No Pending Discharge Within 48 Hours: No ICD10 Worksheet Patient Problems: Problems Problem Status Onset Bipolar affective, manic, severe w/ psych Acute Cannabis use disorder, severe, dependence Acute Conversion disorder Acute Migraine Acute
[2017-05-28] MEDS ORDERED: DIAZEPAM 5 MG TAB PO PRN (12:45)
[2017-05-28] MEDS: IBUPROFEN 200 MG TAB PO PRN (13:02)
[2017-05-28] MEDS: DIAZEPAM 2 MG TAB PO PRN (13:02)
[2017-05-28] MEDS: lamoTRIgine 25 MG TAB PO SCH (21:19)
[2017-05-29] MEDS: GABAPENTIN 300 MG CAP PO SCH ×3 (08:42→21:06)
[2017-05-29] MEDS: QUEtiapine FUMARATE 25 MG TAB PO SCH ×2 (08:42→21:06)
[2017-05-29] MEDS ORDERED: DIAZEPAM 2 MG TAB PO SCH (09:00)
[2017-05-29] MEDS: IBUPROFEN 200 MG TAB PO PRN (11:04)
--- NOTE | 2017-05-29 14:22 | SOAPPROG ---
SOAP Progress Note Assessment/Plan: Assessment: Per Dr. Morse's notes: Reviewed assessment and plan with patient and father during visit. Patient and father report patient has panic attacks improved with PRN Valium but possible disinhibition with PRN Ativan. Scheduled Valium 2mg QAM starting tomorrow and 2mg BID PRN panic attack. Outpatient psychiatrist Dr. Posada previously was recommending low dose scheduled benzodiazepine for panic disorder and hysterical behavior conversion disorder episodes. Original Note: SOAP Progress Note Assessment/Plan: Assessment: Bipolar Disorder type I MRE manic severe with psychotic features Conversion Disorder History of cannabis abuse Akathisia/Restlessness Migraine Headaches IUD History of left elbow surgery, cholecystectomy, 2 concussions. Patient may be a slow metabolizer of medications. Reports past SE from [place] , Zyprexa, Latuda. Patient has better insight today and tolerated Seroquel for 48 hours. Patient has continued manic symptoms but appears more organized than previous. Plan: Short Term Certification Education about bipolar disorder Increase Seroquel 25mg QAM and 50mg QHS, started 05/26/17. Continue Lamictal 25mg PO QHS, discussed risk of Lyle Kofi Syndrome Continue Gabapentin 300mg TID for migraine prevention and akathisia Continue Propranolol 5mg BID PRN restlessness; continue Valium 5mg BID PRN severe anxiety Benadryl 25mg PRN itching or mild anxiety Ibuprofen 200mg PRN migraine Monitor mood stability, thought organization, behavior Discussed [facility] for [facility] care after discharge in [place] Discussed low sugar diet, exercise due to risk of metabolic syndrome; dietary consult Family meeting Plan: 05/29/17 14:07 1. Patient reports increased sedation from increased Seroquel dose yesterday and AM Valium. She requests to change scheduled Valium from AM to Noon. She would still like to continue with PRN Valium, but hasn't used any this AM. 2. Continue on Seroquel and Lamictal for mood stabilization. 3. Will try to titrate dose of meds to more therapeutic levels, however, patient has h/o not tolerating meds well d/t SE's. She claims they are overly sedating and have caused akathisia in past. FOC confirmed to Dr. Morse on Wednesday that her OP psych MD had difficult time getting meds to high enough doses to be most effective. Subjective: Met with patient, reviewed chart and d/w staff. Patient presents more organized and less labile today. She said she felt "groggy" from increased Seroquel yesterday and Valium this AM. She would prefer to take Valium at noon rather than in AM since "that is usually when I'm most anxious" and to avoid over- sedation in AM. Patient says she is "OK" with Seroquel dose b/c "I'm hoping it will help me get discharged." Objective: Vital Signs Temp Pulse Resp BP Pulse Ox 36.3 C 82 16 118/69 97 05/29/17 07:15 05/29/17 08:00 05/29/17 08:00 05/29/17 08:00 05/29/17 08:00 MSE: Mood: "OK" Affect: Elevated, less labile than yesterday TP: Tangential, more organized TC: Denies any SI/HI, still grandiose (insists she is "expert" on everything and "smarter" than peers and staff Insight/Judgment: Poor - Time Spent With Patient Time Spent With Patient: 20" - Pending Discharge Pending Discharge Within 24 Hours: No Pending Discharge Within 48 Hours: No ICD10 Worksheet Patient Problems: Problems Problem Status Onset Bipolar affective, manic, severe w/ psych Acute Histrionic behavior Acute Panic attacks Acute Cannabis use disorder, severe, dependence Acute Conversion disorder Acute Migraine Acute
[2017-05-29] MEDS: PROPRANOLOL HCL 10 MG TAB PO PRN (15:04)
[2017-05-29] MEDS: lamoTRIgine 25 MG TAB PO SCH (21:06)
[2017-05-30] MEDS: GABAPENTIN 300 MG CAP PO SCH ×3 (08:48→21:32)
[2017-05-30] MEDS: QUEtiapine FUMARATE 25 MG TAB PO SCH ×2 (08:48→21:33)
[2017-05-30] MEDS: DIAZEPAM 2 MG TAB PO SCH ×2 (12:10→13:19)
--- NOTE | 2017-05-30 13:31 | SOAPPROG ---
SOAP Progress Note Assessment/Plan: Assessment: Per Dr. Morse's notes: Reviewed assessment and plan with patient and father during visit. Patient and father report patient has panic attacks improved with PRN Valium but possible disinhibition with PRN Ativan. Scheduled Valium 2mg QAM starting tomorrow and 2mg BID PRN panic attack. Outpatient psychiatrist Dr. Posada previously was recommending low dose scheduled benzodiazepine for panic disorder and hysterical behavior conversion disorder episodes. Original Note: SOAP Progress Note Assessment/Plan: Assessment: Bipolar Disorder type I MRE manic severe with psychotic features Conversion Disorder History of cannabis abuse Akathisia/Restlessness Migraine Headaches IUD History of left elbow surgery, cholecystectomy, 2 concussions. Patient may be a slow metabolizer of medications. Reports past SE from [place] , Zyprexa, Latuda. Patient has better insight today and tolerated Seroquel for 48 hours. Patient has continued manic symptoms but appears more organized than previous. Plan: Short Term Certification Education about bipolar disorder Increase Seroquel 25mg QAM and 50mg QHS, started 05/26/17. Continue Lamictal 25mg PO QHS, discussed risk of Lyle Kofi Syndrome Continue Gabapentin 300mg TID for migraine prevention and akathisia Continue Propranolol 5mg BID PRN restlessness; continue Valium 5mg BID PRN severe anxiety Benadryl 25mg PRN itching or mild anxiety Ibuprofen 200mg PRN migraine Monitor mood stability, thought organization, behavior Discussed [facility] for primary care after discharge in [place] Discussed low sugar diet, exercise due to risk of metabolic syndrome; dietary consult Family meeting Plan: 05/29/17 14:07 1. Patient reports increased sedation from increased Seroquel dose yesterday and AM Valium. She requests to change scheduled Valium from AM to Noon. She would still like to continue with PRN Valium, but hasn't used any this AM. 2. Continue on Seroquel and Lamictal for mood stabilization. 3. Will try to titrate dose of meds to more therapeutic levels, however, patient has h/o not tolerating meds well d/t SE's. She claims they are overly sedating and have caused akathisia in past. FOC confirmed to Dr. Morse on Wednesday that her OP psych MD had difficult time getting meds to high enough doses to be most effective. 05/30/17 13:27 1. MD attempted to increase Seroquel to more therapeutic dose, but patient says she is "too sedated" by meds and does not want dose increased. In fact, she is requesting MD lower dose of Gabapentin from 300mg to 200mg. MD encouraged patient to continue on current dose and talk with Dr. Morse about increasing Seroquel or adding another mood stabilizer, which patient doesn't want. Patient woke up for breakfast and attended goals and art therapy groups with no signs or sedation or inability to focus/attend. 2. MD did doc-to-doc review with Dr. Byrd yesterday who requested patient be on higher doses of meds in order to more effectively treat her jaylin. MD explained patient's reluctance to increase doses and her lack fo compliance with treatment in past d/t perceived SE's from medications. Subjective: Met with patient, reviewed chart and d/w staff. Patient is very bright, cheerful and alert this AM. She shows MD the collage she made in art therapy group and talks about the "connections between humans and nature...the whole world really." She says she feels "tired" from meds, but MD can see no evidence of this based on her behavior and participation in groups today. She has had no "behavior spells" over weekend. Patient has not needed any PRN Valium for anxiety or panic. Objective: Vital Signs Temp Pulse Resp BP Pulse Ox 36.3 C 79 14 87/59 L 97 05/30/17 06:59 05/30/17 06:59 05/30/17 06:59 05/30/17 06:59 05/30/17 06:59 MSE: Mood: "Good" Affect: Elevated TP: Tangential TC: Denies any SI/HI, less grandiose, no hallucinations Insight/Judgment: Poor - Time Spent With Patient Time Spent With Patient: 25" - Pending Discharge Pending Discharge Within 24 Hours: No Pending Discharge Within 48 Hours: No ICD10 Worksheet Patient Problems: Problems Problem Status Onset Bipolar affective, manic, severe w/ psych Acute Histrionic behavior Acute Panic attacks Acute Cannabis use disorder, severe, dependence Acute Conversion disorder Acute Migraine Acute
[2017-05-30 19:02] VITALS: RESP 17
[2017-05-30] MEDS: lamoTRIgine 25 MG TAB PO SCH (21:32)
[2017-05-31 06:54] VITALS: BP 94/52; PULSE 72; TEMP 97.5; O2SAT 14
--- NOTE | 2017-05-31 08:12 | SOAPPROG ---
SOAP Progress Note Assessment/Plan: Assessment: Bipolar Disorder type I MRE manic severe with psychotic features Conversion Disorder History of cannabis abuse Akathisia/Restlessness Migraine Headaches IUD History of left elbow surgery, cholecystectomy, 2 concussions. Patient may be a slow metabolizer of medications. Reports past SE from [place] , Zyprexa, Latuda. Patient appears calm and organized with improved insight and denies dangerous thoughts. Plan: Discharge home with parents; terminate certification Follow up with private psychiatrist Dr. Posada Discussed screening for metabolic syndrome in one month Reviewed signs/symptoms of bipolar disorder to monitor Discussed PCP evaluation at [facility] and Neurology follow up for Migraines Discussed monitoring for rash while taking Lamictal and risk of Lyle-Kofi Syndrome Seroquel 25mg QAM, 50mg QPM, Gabapentin 300mg TID, Lamictal 25mg QHS, Valium 2mg /day Discussed risk of sedation and driving impairment with medications Left message with father Jah Whitfield ([phone]) to come to unit to review discharge plan with patient prior to D/C 05/31/17 08:12 Subjective: CC: "Better, tired" Patient reports sleeping well but feeling tired in AM since Seroquel dose increase. Denies racing thoughts, agitation, irritability, or severe mood swings. Reports feeling calm on unit yesterday and this AM. Reports she will continue taking medications until seen by outpatient psychiatrist Dr. Posada. 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 Interested in Neurology follow up for migraine headaches. Reports overall improvement in mood stability with reduced anxiety and 'not being as excited and wound up as before.' Reports plan to discharge home with parents. Denies stiffness or slowing. Objective: Vital Signs Temp Pulse Resp BP Pulse Ox 36.4 C 72 17 94/52 L 14 L 05/31/17 06:52 05/31/17 06:52 05/30/17 19:01 05/31/17 06:52 05/31/17 06:52 Alert WF. Calm. Speech RRR, not pressured or rapid. Mood 'better, tired.' Affect euthymic and appropriate. Thoughts organized. Denies SI or HI or AH or paranoia. Good insight. Appropriate judgment. Staff report patient slept 8.5 hours overnight. Has been calm on unit, attending groups, hasn't had PRN medications >48 hours, no conversion disorder spells. No dangerous statements. Able to calmly attend groups, eating well on unit. Over weekend patient declined increased Seroquel dosing due to sedation following Seroquel dose increase prior to weekend. - Time Spent With Patient Time Spent With Patient: 20 minutes - Pending Discharge Pending Discharge Within 24 Hours: Yes Pending Discharge Within 48 Hours: No Pending Discharge Date: 05/31/17 Pending Discharge Time: 13:00 ICD10 Worksheet Patient Problems: Problems Problem Status Onset Bipolar affective, manic, severe w/ psych Acute Histrionic behavior Acute Panic attacks Acute Cannabis use disorder, severe, dependence Acute Conversion disorder Acute Migraine Acute
[2017-05-31] MEDS: QUEtiapine FUMARATE 25 MG TAB PO SCH (08:37)
[2017-05-31] MEDS: GABAPENTIN 300 MG CAP PO SCH ×2 (08:37→15:10)
[2017-05-31] MEDS: IBUPROFEN 200 MG TAB PO PRN (08:56)
[2017-05-31] MEDS: DIAZEPAM 2 MG TAB PO PRN (09:11)
--- NOTE | 2017-05-31 11:14 | BDS ---
[f rep st] BEHAVIORAL HEALTH DISCHARGE SUMMARY IDENTIFICATION: This is a 26-year-old single white female who lives with her parents and her 6-year-old son. She is currently unemployed. REASON FOR ADMISSION: The patient was transferred back to [address] [place] [address] inpatient psychiatric unit after spending the weekend at the [facility] EEG monitoring unit to evaluate for a seizure episode. Please review discharge summary for the patient from May 20, 2017. Essentially, the patient was admitted to the inpatient unit on May 19, 2017. The patient apparently had been having severe symptoms of bipolar disorder. She had been having extreme erratic behavior, disorganized thinking, severe anxiety, mood swings, bizarre behavior. She had also been having episodes that appeared to be possibly seizures, including staring, shaking, unresponsiveness, and severe disorganization. The patient's parents and her boyfriend had taken her to 4 different medical emergency departments prior to the admission to the unit here on May 19. She was admitted on an M1 hold through the [facility] emergency department. She was placed on a short-term certification for grave disability due to severe disorganization, mood lability. On May 20, 2017, due to episodes on the unit where she was staring, shaking, and unresponsive, she was sent back to the [facility] emergency department and then directly admitted to the [facility] EEG monitoring unit on May 20, 2017, to rule out a complex partial seizure disorder. The patient was then discharged from that unit back to [address] [place] [address] on Wednesday, May 24, 2017. Of note, in the emergency room prior to admission on May 19, the patient was extremely disorganized, bizarre, paranoid, reported hearing voices, and was walking around naked, disrobing, and destroyed a clock. She had gotten Ativan and Zyprexa in the emergency room as well as a dose of olanzapine on the inpatient unit during the initial stay. HOSPITAL COURSE: Upon return to the inpatient unit, the neurology evaluation from [facility] was reviewed. It showed that she had nonepileptic behavior spells , not consistent with a seizure disorder, more consistent with conversion disorder and pseudoseizures. The patient, apparently at [facility] EEG monitoring unit, had been getting 300 mg a day of Lamictal. Even though prior to that admission, she had only been getting 25 mg a day of Lamictal. They did not give her olanzapine while she was there. Her benzodiazepines that had been prescribed p.r.n. prior to admission were held as well. Upon return to the inpatient unit, the patient was initially prescribed olanzapine 10 mg at night for bipolar disorder. The patient refused to take this as she had reported feeling over-sedated by it. On the unit, she initially was extremely labile. She had rapid pressured speech with tangential speech, flight of ideas. She also had grandiose denial of illness. She was singing, dancing, had intrusive behavior. She had reduced sleep. She also had mood lability, episodes of severe anxiety, and panic attacks. She did have 1 episode after readmission to the unit where she was lying on the ground unresponsive. She had normal vital signs. No further intervention was made. She eventually got up and walked away and complained that she was not receiving enough attention from the unit staff. The patient had waxing and waning bipolar symptoms. There were times that she was dysphoric, tearful, hopeless, and overwhelmed. Other times she was having panic attacks where she was hyperventilating, anxious, complaining of headaches, and reported she was scared she was going to have a seizure. She also was euphoric at times, singing, dancing, also making grandiose statements that she was a genius and had more understanding of mental illness than the doctors or other patients. Other times she was anxious and fearful. Other times she was social on the unit. She had episodic complaints of headaches with right eye pain, phonophobia, tingling on the right side of her head. Due to the erratic behavior, mood lability, and manic symptoms, the patient was given information about the risks and benefits of multiple mood stabilizers. The patient refused to retry lithium which she had been prescribed during a psychiatric hospitalization at [facility] in [place]. The patient reports she had edema with this medication. The patient was initially offered Latuda again. She had been prescribed that for several months prior to the current admission. The patient declined to take this after one dose, as she reported this was causing restlessness and akathisia which she had before and had complained to her outpatient provider. The patient was eventually agreeable to start Seroquel at a low dose. The patient reported extreme anxiety and fear of having side effects from medication including fear of being over-sedated or having restlessness. Based on the patient's history that was reviewed with her outpatient psychiatrist, Dr. Posada, as well as with the patient, it was assessed that the patient was likely an ultra-slow metabolizer of medications and so needed lower doses of medications for bipolar disorder than the average patient. The patient insisted that she be restarted on Lamictal as she reported that since she had started this medication, she was less prone to severe depression and hopelessness. This was eventually restarted at 25 mg. The patient was given extensive information about the risk of Valdez-Kofi syndrome with Lamictal. The patient did not have any rash or itching on the unit. The patient was started on Seroquel as a mood stabilizer for manic and mixed episodes. She was started on a very low dose 12.5 mg in the morning and 25 mg at night. This was eventually increased to 25 mg in the morning and 50 mg at night. The patient had a marked improvement. She became less agitated, less labile, less pressured, less rapid with her speech, and had less dysphoria and less anxiety. She had much improved sleep patterns. She became more calm and organized and had more consistent insight into her illness. The patient's family visited several times prior to discharge. She had been calm, attending groups, eating well, sleeping well, did not appear to have severe emotional lability, had marked improvement in insight prior to discharge. She did not require any restraints or seclusion. She did not have any violent behavior or violent threats. She repeatedly denied thoughts to hurt herself and did not display any self-injurious behavior. The patient was started on gabapentin 300 mg t.i.d. for migraine headaches. The patient described either cluster or migraine headaches with severe pain in her right eye, photophobia, headache on the right side of her head. This was reduced significantly with the gabapentin. The patient was warned about the risks of psychiatric medications causing defects or miscarriage; however, she has an IUD for control. The patient received p.r.n. Benadryl and propranolol 5 mg for akathisia when she was initially on Latuda. She did not require either of those as p.r.n. for several days prior to discharge while taking Seroquel and PRN valium. The patient appeared to be having panic attacks on the unit. This history was confirmed by her outpatient psychiatrist who recommended that she be on a low dose of a benzodiazepine for panic disorder. The patient was initially given 5 mg daily, but reported excessive sedation, and so this was reduced to 2 mg daily at noon for anxiety and panic attacks. CONDITION ON DISCHARGE: She has a positive attitude toward discharge. She is an alert, tall, white female in no acute distress. She is ambulatory, cooperative, and pleasant. Her speech is regular rate and rhythm. Her thoughts are organized. She denies thoughts to hurt herself or others. She describes her mood as "good." She denies auditory hallucinations or paranoia. She has good memory, fair insight, and appropriate judgment. CONSULTS: As noted before, the patient was transferred to [facility] for EEG monitoring prior to admission. She had a dietary consult for a low carbohydrate diet. LABS: As noted in the discharge summary from May 20, she had a white blood cell count 8.0, hemoglobin 14.8, platelet count 285. Sodium 143, potassium 3.8, creatinine 0.9, glucose 88, hemoglobin A1c 4.9, AST 23, ALT 21. Triglycerides 35, LDL 81, HDL 48. TSH 2.1. Serum beta HCG was negative. Urine drug screen on May 18 was positive for benzodiazepines and cannabis. She had been reporting smoking cannabis once or twice a week and taking p.r.n. Valium prior to that admission. There are no labs pending. NICOTINE AND ALCOHOL USE DISORDER SCREENING: patient denied regular use of alcohol or nicotine prior to admission. CANNABIS USE DISORDER SCREENING: patient reported using cannabis 1-2 times a week. She was counseled that cannabis can cause anxiety and psychosis and memory problems. ADVANCED DIRECTIVE: patient did not have an advanced directive, but signed SUJIT for her care to be coordinated with her parents and boyfriend. METABOLIC SCREENING: patient was screened negative for diabetes and hyperlipidemia. She was counseled about the risk of Seroquel causing diabetes and received a dietary consult to review a low carbohydrate diet. DISCHARGE DIAGNOSES: Bipolar disorder type 1, most recent episode manic, severe with psychotic features; Cannabis use disorder, mild; Conversion disorder with pseudoseizures Migraine headaches; History of intrauterine device; History of 2 concussions as a child; History of left elbow surgery; History of cholecystectomy; Allergy to amoxicillin. DISCHARGE MEDICATIONS: Seroquel 25 mg by mouth in the morning and 50 mg by mouth at bedtime, gabapentin 300 mg p.o. t.i.d. for migraines, Valium 2 mg by mouth daily for panic attacks, Lamictal 25 mg by mouth at bedtime for bipolar disorder. DISPOSITION: The patient is leaving the unit with her parents to return home. They will assist the patient in getting her medications filled and getting to outpatient followup with Dr. Posada, her private psychiatrist. FOLLOWUP: The patient was referred to [facility] for primary care. She was counseled to get her blood glucose checked in 1 month. She has an appointment with Dr. Yazan Posada, her outpatient psychiatrist, on Wednesday. LEGAL STATUS: The patient was on a short-term certification dated May 20. This will be terminated at discharge so she will be receiving outpatient treatment on a voluntary basis. OTHER INSTRUCTIONS: The patient is instructed not to drive within 12 hours of taking diazepam. She has been counseled to stop smoking cannabis as this can cause anxiety, panic attacks, and psychosis. The patient was warned to monitor for a rash while taking Lamictal. If developing a rash, she should immediately discontinue Lamictal, take 50 mg of Benadryl, and then go to an emergency room if her rash does not improve for medical evaluation of Valdez-Kofi syndrome. /[id number]/MODL MTDD
[2017-05-31] MEDS: DIAZEPAM 2 MG TAB PO SCH (11:54)
== END 2017-05-31 15:40 | disposition home or self-care (01) | DRG 885 ==
LOC: BBEH 19:55
DX: F31.2 Bipolar disorder, current episode manic severe with psychotic features (principal); F44.5 Conversion disorder with seizures or convulsions; F12.90 Cannabis use, unspecified, uncomplicated; G43.B0 Ophthalmoplegic migraine, not intractable; G25.71 Drug induced akathisia; T43.595A Adverse effect of other antipsychotics and neuroleptics, initial encounter; Z87.820 Personal history of traumatic brain injury; Z88.1 Allergy status to other antibiotic agents; Z81.8 Family history of other mental and behavioral disorders

== ENCOUNTER 2017-06-01 18:35 | Emergency (ER) | payer MEDICAID ==
[2017-06-01 18:42] VITALS: TEMP 98.4
--- NOTE | 2017-06-01 18:53 | EDPHY ---
H & P Smoking Status: Never smoked Time Seen by Provider: 06/01/17 18:36 HPI/ROS: CHIEF COMPLAINT: Bipolar HISTORY OF PRESENT ILLNESS: 26-year-old female presents to the emergency department on M1 hold by ambulance. The patient has a history of bipolar and was recently released from the mental health unit at [facility] yesterday. She was discharged home with her parents here in [place]. She apparently got into an argument with her parents today. She states "my parents are unable to provide a stable living environment for me". Currently she has no physical complaints. Denies substance abuse. She has been taking her medications as prescribed. She denies chest pain or difficulty breathing. Denies abdominal pain. Denies headache. Denies neck or back pain. REVIEW OF SYSTEMS: Constitutional: No fever, no chills. Eyes: No double or blurry vision. ENT: No sore throat. Respiratory: No cough, no shortness of breath. Cardiac: No chest pain. Gastrointestinal: No abdominal pain, vomiting or diarrhea. Genitourinary: No dysuria. Musculoskeletal: No neck or back pain. Skin: No rashes. Neurological: No headache. (Gem Sanders) Past Medical/Surgical History: Bipolar (Gem Sanders) Social History: Single (Gem Sanders) Physical Exam: General Appearance: Alert, no distress. Mentating normally and answering questions appropriately. Eyes: Pupils equal and round. Extraocular motions are all intact. ENT: Mouth: Mucous membranes moist. Respiratory: No wheezing, rhonchi, or rales, lungs are clear to auscultation. Cardiovascular: Regular rate and rhythm. Gastrointestinal: Abdomen is soft and nontender, no masses, no rebound or guarding, bowel sounds normal. Neurological: Alert and oriented x 3, cranial nerves II through XII grossly intact Skin: Warm and dry, no rashes. Musculoskeletal: Nontender to palpate along the cervical, thoracic or lumbar spine. Neck is supple. Extremities: Full range of motion and no peripheral edema. Psychiatric: Patient is oriented X 3, there is no agitation. (Gem Sanders) Constitutional: Initial Vital Signs Temperature (C) 36.9 C 06/01/17 18:40 Heart Rate 88 06/01/17 18:40 Respiratory Rate 16 06/01/17 18:40 Blood Pressure 138/86 H 06/01/17 18:40 O2 Sat (%) 99 06/01/17 18:40 O2 Delivery Mode Room Air Allergies/Adverse Reactions: amoxicillin Allergy (Verified 05/18/17 14:09) Home Medications: Medication Instructions Recorded Diazepam [Valium 2 MG (*)] 2 mg PO DAILY PRN #4 tab 05/31/17 Gabapentin [Neurontin 300 MG (*)] 300 mg PO TID #12 cap 05/31/17 QUEtiapine FUMARATE [Seroquel 25 25 mg PO DAILY #4 tab 05/31/17 mg (*)] QUEtiapine FUMARATE [Seroquel 25 50 mg PO HS #4 tab 05/31/17 mg (*)] diphenhydrAMINE [Benadryl 25 MG 25 mg PO Q4H PRN #10 cap 05/31/17 (*)] lamoTRIgine [LaMICtal] 25 mg PO HS #4 tab 05/31/17 Medical Decision Making ED Course/Re-evaluation: 26-year-old female presents to the emergency department on M1 hold. She has already been evaluated by mental health and is here for medical clearance. Laboratory studies have been drawn and are pending. (Gem Sanders) 0607: No acute events overnight. Patient on M1 hold. Pending placement. History bipolar disorder. Recent hospitalization. Patient at 7:00 a.m[facility] a.m.-I assumed care of this patient at shift change. She has a history of bipolar disorder and presents with suicidal ideation on an M1 hold. Noon-this patient has been accepted to [facility] by Dr. Ly. EMTALA completed. (Joselin Soliman) Differential Diagnosis: Depression including functional and major depression, situational depression, medication side effect, drugs and alcohol abuse. (Gem Sanders) Other Provider: PHYSICIAN DOCUMENTATION: The patient was evaluated and managed by the Physician King Maker and myself. I have reviewed the chart and agree with the findings and plan of care as documented. In addition, I examined the patient myself. History confirmed as bipolar disorder. Physical findings as follows: Alert, calm, cooperative and eating off her food tray. Per EPS, plan for inpatient psychiatric stabilization admission. Signed out to Charles at 2221 with placement pending. I am the secondary supervising physician. (Carmelo Laurent) - Data Points Laboratory Results: Laboratory Results 06/01/17 19:05 06/01/17 19:05 06/02/17 00:15 Urine Opiates Screen NEGATIVE (NEGATIVE) Urine Barbiturates NEGATIVE (NEGATIVE) Ur Phencyclidine Scrn NEGATIVE (NEGATIVE) Ur Amphetamine Screen NEGATIVE (NEGATIVE) U Benzodiazepines Scrn NON-NEGATIVE H (NEGATIVE) Urine Cocaine Screen NEGATIVE (NEGATIVE) U Marijuana (THC) Screen NON-NEGATIVE H (NEGATIVE) Medications Given: Discontinued Medications Gabapentin (Neurontin) 300 mg PO EDNOW ONE Stop: 06/01/17 19:46 Last Admin: 06/01/17 19:47 Dose: 300 mg Gabapentin (Neurontin) 300 mg PO EDNOW ONE Stop: 06/02/17 08:28 Last Admin: 06/02/17 08:46 Dose: 300 mg Lamotrigine (Lamictal) 25 mg PO EDNOW ONE Stop: 06/01/17 21:27 Last Admin: 06/01/17 22:04 Dose: 25 mg Quetiapine Fumarate (Seroquel) 25 mg PO EDNOW ONE Stop: 06/01/17 22:01 Last Admin: 06/01/17 22:04 Dose: 25 mg Quetiapine Fumarate (Seroquel) 25 mg PO EDNOW ONE Stop: 06/02/17 08:28 Last Admin: 06/02/17 09:04 Dose: 25 mg Departure - Departure Disposition: Other Psych, Not [place] Clinical Impression: Suicidal ideation Bipolar disorder Qualifiers: Active/Remission status: currently active Current bipolar episode type: manic Current episode severity: moderate Qualified Code(s): F31.12 - Bipolar disorder , current episode manic without psychotic features, moderate Condition: Good Referrals: NONE *PRIMARY CARE P,. [Primary Care Provider] - As per Instructions
[2017-06-01 19:26] LABS: PLATELET COUNT 335 10^3/uL (150-400)
[2017-06-01] MEDS ORDERED: GABAPENTIN 300 MG CAP PO ONE (19:45)
[2017-06-01] MEDS ORDERED: lamoTRIgine 25 MG TAB PO ONE (21:26)
[2017-06-01] MEDS ORDERED: QUEtiapine FUMARATE 50 MG TAB PO ONE (21:27)
[2017-06-01] MEDS ORDERED: QUEtiapine FUMARATE 25 MG TAB PO ONE (22:00)
[2017-06-02] MEDS ORDERED: QUEtiapine FUMARATE 25 MG TAB PO ONE (08:27)
[2017-06-02] MEDS ORDERED: GABAPENTIN 300 MG CAP PO ONE (08:27)
[2017-06-02 08:45] VITALS: RESP 18
[2017-06-02 13:53] VITALS: BP 122/56; PULSE 106; O2SAT 96
== END 2017-06-02 13:53 ==
LOC: EDUNIT#
DX: F31.12 Bipolar disorder, current episode manic without psychotic features, moderate (principal); R45.851 Suicidal ideations
CPT/HCPCS: 80305; G0480

== ENCOUNTER → 2017-06-15 | Outpatient (CLI) | payer MEDICAID | LOC: FIMAGING 18:40 | PROVIDERS: ATTEND Psychiatry & Neurology Neurology | DX: R68.89 Other general symptoms and signs (principal); R51 Headache ==

== ENCOUNTER 2017-06-21 13:02 | Emergency (ER) | payer MEDICAID ==
[2017-06-21 13:31] VITALS: TEMP 98.1
--- NOTE | 2017-06-21 14:12 | EDPHY ---
H & P Stated Complaint: SI - depression restarted when boyfouzia broke up with her on . - Personal History LMP (Females 10-55): Unknown Current Tetanus/Diphtheria Vaccine: Yes Current Tetanus Diphtheria and Acellular Pertussis (TDAP): Yes - Medical/Surgical History Hx Asthma: No Hx Chronic Respiratory Disease: No Hx Diabetes: No Hx Cardiac Disease: No Hx Renal Disease: No Hx Cirrhosis: No Hx Alcoholism: No Hx HIV/AIDS: No Hx Splenectomy or Spleen Trauma: No Other PMH: seizure disorder, bipolar, anxiety, - Social History Smoking Status: Never smoked Time Seen by Provider: 06/21/17 13:08 HPI/ROS: CHIEF COMPLAINT: Depression suicidal ideation HISTORY OF PRESENT ILLNESS: 26-year-old female history of bipolar disorder arrives via ambulance for complaints of increasing anxiety, depression, suicidal ideation with plan to jump off of bridge. She broke up with her boyfriend few days ago. She missed her 7 year old child's day 2 days ago. All these combined have increased her depression anxiety as well as suicidal ideation. She denies complaints of physical discomfort. Denies self- injury. Denies homicidal ideation. REVIEW OF SYSTEMS: A ten point review of systems was performed and is negative with the exception of the items mentioned in the HPI PAST MEDICAL & SURGICAL HISTORY: Bipolar disorder SOCIAL HISTORY:Single denies acute alcohol or drug use PHYSICAL EXAM (Prior to examination, patient consented to physical exam, hands were washed and my usual and customary physical exam procedures followed) 1) GENERAL: [Well-developed, well-nourished, alert and oriented. Crying hyperventilating, appears anxious 2) HEAD: Normocephalic, atraumatic 3) HEENT: Pupils equal, round, reactive to light bilaterally. Sclera anicteric. 4) NECK: Full range of motion, no meningeal signs. 5) LUNGS: Clear auscultation bilaterally, no wheezes, no rhonchi, no retractions. 6) HEART: Regular rate and rhythm, no murmur, no heave, no gallop. 7) ABDOMEN: No guarding, no rebound, no focal tenderness, negative McBurney's, 8) MUSCULOSKELETAL: No peripheral edema or discoloration. 9) BACK: No visual or palpable abnormality. 10) SKIN: No rash, no petechiae. 11) Psychiatric: Patient is oriented X 3, she has rapid speech pattern, rocking in bed, crying, hyperventilating DIFFERENTIAL DIAGNOSIS: In no particular order including but not limited to acute anxiety, depression, suicidal ideation, homicidal ideation (Shaylee Watson Marisela) Constitutional: Initial Vital Signs Temperature (C) 36.7 C 06/21/17 13:25 Heart Rate 75 06/21/17 13:25 Respiratory Rate 16 06/21/17 13:25 Blood Pressure 123/74 H 06/21/17 13:25 O2 Sat (%) 98 06/21/17 13:25 O2 Delivery Mode Room Air Allergies/Adverse Reactions: amoxicillin Allergy (Verified 05/18/17 14:09) Home Medications: Medication Instructions Recorded QUEtiapine FUMARATE [Seroquel 25 25 mg PO DAILY #4 tab 05/31/17 mg (*)] QUEtiapine FUMARATE [Seroquel 25 50 mg PO HS #4 tab 05/31/17 mg (*)] diphenhydrAMINE [Benadryl 25 MG 25 mg PO Q4H PRN #10 cap 05/31/17 (*)] Diazepam [Valium 2 MG (*)] 1 - 4 mg PO DAILY PRN 06/21/17 Herbals/Supplements -Info Only 1 ea PO DAILY 06/21/17 Ibuprofen [Motrin (*)] 200 mg PO Q6H PRN 06/21/17 Propranolol HCl [Inderal 10mg (*)] 5 - 10 mg PO BID PRN 06/21/17 lamoTRIgine [Lamotrigine] 25 mg PO BID 06/21/17 Medical Decision Making ED Course/Re-evaluation: Patient was also seen and examined by Dr. Carmelo Laurent in the ER. Patient was placed on M1 hold in the emergency department as she presents an imminent danger to herself, dorsum suicidal ideation with plan to jump off a bridge. 5:00 p.m.: Care turned over to Dr. Carmelo Laurent in the ER awaiting mental health evaluation. (Shaylee Watson Marisela) 4515: Patient has been accepted at [facility] by Dr. Montgomery. EMTALA filled out. Appropriate transfer be set up. (Noe Campuzano) Other Provider: PHYSICIAN DOCUMENTATION: The patient was evaluated and managed by the Physician Emt/Dispatcher and myself. I have reviewed the chart and agree with the findings and plan of care as documented. In addition, I examined the patient myself at 1415. History confirmed as patient expresses suicidal ideation, history of bipolar disorder with psychotic features and PTSD.. Physical findings as follows: Patient is alert and tearful and rocking back and forth on the bed. She is placed on a mental health hold at this time for expressing suicidal ideation with a plan to jump off a bridge. 1904: per mental health park[facility] plan is for patient to go to a CSU. 1999: signed out to [facility], plan for CSU for bipolar disorder. I am the secondary supervising physician. (Carmelo Laurent) - Data Points Laboratory Results: Laboratory Results 06/21/17 14:16 06/21/17 14:16 Medications Given: Discontinued Medications Lorazepam (Ativan) 1 mg PO EDNOW ONE Stop: 06/21/17 14:44 Last Admin: 06/21/17 20:05 Dose: 1 mg Departure - Departure Disposition: Other Psych, Not [place] Clinical Impression: Suicidal ideation, Anxiety Bipolar disorder Qualifiers: Active/Remission status: currently active Current bipolar episode type: depressed Current episode severity: moderate Qualified Code(s): F31.32 - Bipolar disorder, current episode depressed, moderate Depression Qualifiers: Depression Type: other depression Qualified Code(s): F32.89 - Other specified depressive episodes Condition: Fair Referrals: NONE *PRIMARY CARE P,. [Primary Care Provider] - As per Instructions
[2017-06-21 14:35] LABS: PLATELET COUNT 265 10^3/uL (150-400)
[2017-06-21] MEDS ORDERED: LORazepam 1 MG TAB PO ONE (14:43)
[2017-06-21] MEDS ORDERED: LORazepam 1 MG TAB ONE (19:59)
[2017-06-21 23:18] VITALS: RESP 18
[2017-06-22 04:05] VITALS: BP 99/65; PULSE 75; O2SAT 95
== END 2017-06-22 04:05 ==
LOC: EDUNIT#
DX: R45.851 Suicidal ideations (principal); F31.32 Bipolar disorder, current episode depressed, moderate; F41.9 Anxiety disorder, unspecified
CPT/HCPCS: 80305; G0480

== ENCOUNTER 2017-12-01 13:23 | Inpatient (IN) | payer MEDICAID ==
[2017-12-01] MEDS ORDERED: NICOTINE POLACRILEX 2 MG GUM B PRN (19:29)
[2017-12-01] MEDS ORDERED: MAG HYDROX/AL HYDROX/SIMETH 30 ML UDCUP PO PRN (19:29)
[2017-12-01] MEDS: IBUPROFEN 200 MG TAB PO PRN (20:12)
[2017-12-01] MEDS: PRAZOSIN HCL 1 MG CAP PO SCH (20:12)
[2017-12-01] MEDS: LORazepam 0.5 MG TAB PO PRN (21:41)
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
--- NOTE | 2017-12-02 08:35 | ASMTCMCOM ---
CM Note CM Note Notes: CC met with ct. to develop MTP. Ct. presented with flat and anxious affect. She reported that she started working on trauma issues in her therapy and that it was so triggering that she became psychotic. Ct. reported that she hears voices (non-commending) and that she feels very anxious and restless. She would like her medications adjusted. She reported that she will try attending groups as much as she can. Date Signed: 12/02/2017 08:35 AM Electronically Signed By:Nelly Madera
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
[2017-12-02] MEDS: IBUPROFEN 200 MG TAB PO PRN ×2 (16:15→22:30)
[2017-12-02] MEDS ORDERED: PROPRANOLOL HCL 20 MG TAB PO SCH (21:00)
[2017-12-02] MEDS ORDERED: PRAZOSIN HCL 1 MG CAP PO SCH (21:00)
[2017-12-02] MEDS: PRAZOSIN HCL 1 MG CAP PO SCH ×2 (21:07→21:09)
[2017-12-02] MEDS: LITHIUM CARBONATE ER 300 MG TAB PO SCH ×2 (21:07→21:09)
[2017-12-02] MEDS: DIAZEPAM 2 MG TAB PO SCH (21:11)
--- NOTE | 2017-12-02 21:52 | PDMN ---
Medical Necessity Medical necessity: Pt meets inpt criteria peer order and [facility] [id number], Bipolar Disorders, Adult: Inpatient Care, 4 days. Est LOS>2MN for management of Bipolar 1 disorder, presenting in decompensated state w/clear evidence of psychosis, on M1 Hold. Admit to inpt behavioral health for ongoing eval/ treatment.
[2017-12-03] MEDS: DIAZEPAM 2 MG TAB PO SCH ×3 (07:52→21:14)
[2017-12-03] MEDS: IBUPROFEN 200 MG TAB PO PRN (09:59)
--- NOTE | 2017-12-03 10:55 | ASMTCMCOM ---
CM Note CM Note Notes: CC checked in with ct. Ct. reported that her hold is up today and that she needs to be discharged and get back home. Ct. complained that she has not received the correct medications this morning. She refused meds. She appeared labile and agitated. Date Signed: 12/03/2017 10:54 AM Electronically Signed By:Nelly Madera
[2017-12-03] MEDS: ARIPiprazole 2 MG TAB PO SCH (12:57)
--- NOTE | 2017-12-03 15:07 | SOAPPROG ---
SOAP Progress Note Assessment/Plan: Assessment: Plan: 12/03/17 15:07 Psychosis/mood: Improving. Will add Abilify at 1mg and monitor. Subjective: Pt seen, discussed with staff, interviewed in Treatment Team meeting. She is more irritable today, angry that her meds were not written properly. I sat down with her to check them and they were not, in fact, entered correctly by me. The diazepam was written as BID instead of HS and the prazosin was written as HS instead of BID. She states she is frustrated that "every single time I go to the hospital they mess up my meds like this." She eventually accepts my apology. She does not, however, agree to stay in the hospital. She insists she is not delusional/paranoid and is being harassed, spied on and poisoned. I discussed with her Dr. Posada's opinion that she try a low antipsychotic such as Abilify and she is agreeable. I reviewed in detail the potential risks, benefits and alternatives to this. Objective: Vital Signs Temp Pulse Resp BP Pulse Ox 36.8 C 67 14 92/58 L 98 12/03/17 06:00 12/03/17 06:00 12/03/17 06:00 12/03/17 06:00 12/03/17 06:00 - Time Spent With Patient Time Spent With Patient: 35" ICD10 Worksheet Patient Problems: Problems Problem Status Onset Bipolar affective, manic, severe w/ psych Acute Cannabis use disorder, severe, dependence Acute Conversion disorder Acute Histrionic behavior Acute Migraine Acute Panic attacks Acute
[2017-12-03] MEDS: diphenhydrAMINE 25 MG CAP PO PRN (21:14)
[2017-12-03] MEDS: PRAZOSIN HCL 1 MG CAP PO SCH (21:14)
[2017-12-03] MEDS: LITHIUM CARBONATE ER 300 MG TAB PO SCH (21:15)
[2017-12-04] MEDS: ARIPiprazole 2 MG TAB PO SCH (08:37)
[2017-12-04] MEDS: PRAZOSIN HCL 1 MG CAP PO SCH ×2 (08:38→21:02)
[2017-12-04] MEDS: IBUPROFEN 200 MG TAB PO PRN (08:38)
--- NOTE | 2017-12-04 17:27 | SOAPPROG ---
SOAP Progress Note Assessment/Plan: Assessment: Per Dr. Dumont's notes: 12/03/17 15:07 Psychosis/mood: Improving. Will add Abilify at 1mg and monitor. Subjective: Pt seen, discussed with staff, interviewed in Treatment Team meeting. She is more irritable today, angry that her meds were not written properly. I sat down with her to check them and they were not, in fact, entered correctly by me. The diazepam was written as BID instead of HS and the prazosin was written as HS instead of BID. She states she is frustrated that "every single time I go to the hospital they mess up my meds like this." She eventually accepts my apology. She does not, however, agree to stay in the hospital. She insists she is not delusional/paranoid and is being harassed, spied on and poisoned. I discussed with her Dr. Posada's opinion that she try a low antipsychotic such as Abilify and she is agreeable. I reviewed in detail the potential risks, benefits and alternatives to this. Plan: 12/04/17 17:21 1. Patient c/o nausea and dizziness. Blames Abilify and says she is "allergic" to all antipsychotic meds. 2. Refuses to take "any new meds" until she can "talk to my court appointed pay agent." 3. Patient denies any SI/HI. 4. [facility] Subjective: Patient lying down in bed wearing jeans and a sweatshirt. She states that she thought she was "going to " this AM b/c she had a "bad reaction" to Abilify which she agreed to take at very low dose of 1mg. Last night she c/o "allergic reaction" to staff b/c she noticed redness on her legs and arms. However, when staff evaluated her they detected no rash. Today, MD could not see any evidence of rash or swelling. She denied akathisia and difficulty swallowing or breathing. Patient had no s/s of EPS. This AM, she said she felt "like puking" but did not vomit. She also c/o "dizziness," but MD observed patient walk from her room to TV room without any balance or gait problems. Patient slept 7.5 hrs last night and denies any SI today. Objective: Vital Signs Temp Pulse Resp BP Pulse Ox 36.7 C 74 14 107/58 L 98 12/04/17 06:00 12/04/17 06:00 12/04/17 06:00 12/04/17 06:00 12/04/17 06:00 MSE: Affect: Irritable about meds Mood: "Feel like I'm going to ." TP: Tangential, irrational TC: Denies any SI/HI Insight/Judgment: Poor - Time Spent With Patient Time Spent With Patient: 15" - Pending Discharge Pending Discharge Within 24 Hours: No Pending Discharge Within 48 Hours: No ICD10 Worksheet Patient Problems: Problems Problem Status Onset Bipolar affective, manic, severe w/ psych Acute Cannabis use disorder, severe, dependence Acute Conversion disorder Acute Histrionic behavior Acute Migraine Acute Panic attacks Acute
[2017-12-04] MEDS: LITHIUM CARBONATE ER 300 MG TAB PO SCH (21:03)
[2017-12-04] MEDS: DIAZEPAM 2 MG TAB PO SCH (21:04)
[2017-12-05] MEDS: ARIPiprazole 2 MG TAB PO SCH ×2 (08:33→08:41)
[2017-12-05] MEDS: PRAZOSIN HCL 1 MG CAP PO SCH ×2 (08:33→19:38)
--- NOTE | 2017-12-05 15:32 | ASMTCMCOM ---
CM Note CM Note Notes: The patient continues to present with psychotic features and appears to be responding to internal stimuli. She reportedly had 1 hour of sleep overnight and was seen talking to herself in her room. She participates in some groups and otherwise isolates in her room during programming. She is resistant to medication. The patient stated, "how come the medication committee changed my antidepressant and dosage without consulting me?" The patient responded with some delay and perceived thought blocking; possible internal stimuli. She avoided eye contact; covering her face with her hand. She stated, "I'm sorry I'm not doing well here... I think I need to see a medical doctor..." After some silence, she stood up and left the library returning to her room. The patient's nurse was notified. Date Signed: 12/05/2017 02:53 PM Electronically Signed By:Tyesha Kumar
--- NOTE | 2017-12-05 16:40 | SOAPPROG ---
SOAP Progress Note Assessment/Plan: Assessment: Per Dr. Dumont's notes: 12/03/17 15:07 Psychosis/mood: Improving. Will add Abilify at 1mg and monitor. Subjective: Pt seen, discussed with staff, interviewed in Treatment Team meeting. She is more irritable today, angry that her meds were not written properly. I sat down with her to check them and they were not, in fact, entered correctly by me. The diazepam was written as BID instead of HS and the prazosin was written as HS instead of BID. She states she is frustrated that "every single time I go to the hospital they mess up my meds like this." She eventually accepts my apology. She does not, however, agree to stay in the hospital. She insists she is not delusional/paranoid and is being harassed, spied on and poisoned. I discussed with her Dr. Posada's opinion that she try a low antipsychotic such as Abilify and she is agreeable. I reviewed in detail the potential risks, benefits and alternatives to this. Plan: 12/04/17 17:21 1. Patient c/o nausea and dizziness. Blames Abilify and says she is "allergic" to all antipsychotic meds. 2. Refuses to take "any new meds" until she can "talk to my court appointed biology intern." 3. Patient denies any SI/HI. 4. [facility] [[email or web address]] 12/05/17 16:36 1. Patient said she "didn't want to talk" to MD. 2. Refused to take Abilify this AM. 3. Denies any SI/HI. 4. [facility] [[email or web address]] Subjective: Patient refused to take Abilify this AM. She told RN that she wouldn't take any meds unless "Dr. Yazan Posada prescribes them." RN explained that Dr. Dumont consulted with Dr. Posada and their recommendation was that patient should start taking an antipsychotic medication. Patient said she can't take antipsychotic meds b/c she is "allergic" to them. MD attempted to talk to patient, but she told MD to "go away" b/c she didn't want "to talk to you." Staff noted patient was labile and tearful this AM. When asked why, patient said she was "thinking about my aunt." Patient only slept 1 hr. last night. Staff report she has been responding to internal stimuli, talking to herself overnight. Objective: Vital Signs Temp Pulse Resp BP Pulse Ox 36.6 C 60 15 106/57 L 96 12/05/17 06:00 12/05/17 06:00 12/05/17 06:00 12/05/17 06:00 12/05/17 06:00 MSE: Affect: Labile, tearful, shaking Mood: Sad TP: Disorganized, illogical TC: Denies any SI/HI Perception: RIS Insight/Judgment: Impaired - Time Spent With Patient Time Spent With Patient: 15" - Pending Discharge Pending Discharge Within 24 Hours: No Pending Discharge Within 48 Hours: No ICD10 Worksheet Patient Problems: Problems Problem Status Onset Bipolar affective, manic, severe w/ psych Acute Cannabis use disorder, severe, dependence Acute Conversion disorder Acute Histrionic behavior Acute Migraine Acute Panic attacks Acute
[2017-12-05] MEDS: DIAZEPAM 2 MG TAB PO SCH (19:38)
[2017-12-05] MEDS: LITHIUM CARBONATE ER 300 MG TAB PO SCH (19:38)
[2017-12-06] MEDS: IBUPROFEN 200 MG TAB PO PRN (00:29)
[2017-12-06] MEDS ORDERED: HALOPERIDOL LACT 5 MG/ML INJ ONE (06:05)
[2017-12-06] MEDS ORDERED: LORazepam 2 MG/ML INJ ONE (06:06)
[2017-12-06] MEDS ORDERED: HALOPERIDOL LACT 5 MG/ML INJ IM ONE (06:15)
[2017-12-06] MEDS ORDERED: LORazepam 2 MG/ML INJ IM ONE (06:15)
[2017-12-06] MEDS: PRAZOSIN HCL 1 MG CAP PO SCH ×3 (08:43→21:06)
[2017-12-06] MEDS: ARIPiprazole 2 MG TAB PO SCH (08:44)
--- NOTE | 2017-12-06 12:25 | ASMTCMCOM ---
CM Note CM Note Notes: The patient is observed head hanging, hair covering her face upright in a seated position. She is observed in the library room assuming this posture. The patient stated, "Tell me what I have to do to leave?" "I can't feel my fingers." According to [facility] nursing staff, the patient presented with nonsensical speech that was not understandable. CC explained to the patient that the clinical team wants to see that she is stable and safe prior to discharge; including behavioral expectations; that the patient remain out of seclusion and be medication adherent. Date Signed: 12/06/2017 12:20 PM Electronically Signed By:Tyesha Kumar
--- NOTE | 2017-12-06 15:50 | SOAPPROG ---
SOAP Progress Note Assessment/Plan: Assessment: Plan: 12/03/17 15:07 Psychosis/mood: Improving. Will add Abilify at 1mg and monitor. 12/06/17 15:50 Psychosis/Mood: Doing poorly without meds. Will monitor for now, repeat Emeds if necessary. Will discuss meds further with pt tomorrow and if she continues to refuse voluntary PO antipsychotic medications, will petition for COM. This is not ideal due to her seeing a private psychiatrist in the community and not therefore being able to transfer certification or meds at d/c. Subjective: Pt seen, discussed with staff, chart reviewed. Refused Abilify over WE, stating she is allergic to it. Quite agitated overnight, disrobing, screaming. Staff unable to verbally redirect. Placed in seclusion initially by Dr. Hsieh , renewed by me early this morning due to continued agitated behaviors. Given Haldol and Ativan with good effect. Able to come out of seclusion after approx. one hour. Calmer, sedated, for the remainder of the morning. Objective: Vital Signs Temp Pulse Resp BP Pulse Ox 37.0 C 111 H 16 111/62 98 12/06/17 06:00 12/06/17 06:00 12/06/17 06:00 12/06/17 06:00 12/06/17 06:00 MSE: Calm, sedated after meds. Disheveled, but dressed approp. Affect is blunted. TP disorganized. TC reveals paranoid and somatic delusions. - Time Spent With Patient Time Spent With Patient: 25" ICD10 Worksheet Patient Problems: Problems Problem Status Onset Bipolar affective, manic, severe w/ psych Acute Cannabis use disorder, severe, dependence Acute Conversion disorder Acute Histrionic behavior Acute Migraine Acute Panic attacks Acute
[2017-12-06] MEDS: DIAZEPAM 2 MG TAB PO SCH (21:06)
[2017-12-06] MEDS: LITHIUM CARBONATE ER 300 MG TAB PO SCH (21:06)
[2017-12-07] MEDS: PRAZOSIN HCL 1 MG CAP PO SCH ×3 (08:44→20:32)
[2017-12-07] MEDS: ARIPiprazole 2 MG TAB PO SCH (08:48)
[2017-12-07] MEDS: IBUPROFEN 200 MG TAB PO PRN (09:38)
--- NOTE | 2017-12-07 16:21 | SOAPPROG ---
SOAP Progress Note Assessment/Plan: Assessment: Plan: 12/03/17 15:07 Psychosis/mood: Improving. Will add Abilify at 1mg and monitor. 12/06/17 15:50 Psychosis/Mood: Doing poorly without meds. Will monitor for now, repeat Emeds if necessary. Will discuss meds further with pt tomorrow and if she continues to refuse voluntary PO antipsychotic medications, will petition for COM. This is not ideal due to her seeing a private psychiatrist in the community and not therefore being able to transfer certification or meds at d/c. 12/07/17 16:24 Psychosis/Mood: No change, perhaps worse today. Need to proceed with involuntary meds as she is not improving without an antipsychotic medication. Subjective: Pt seen, discussed with staff. Refused Abilify again last night. She is sitting on the floor at the nurses' station, singing loudly. 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 I discussed the case with her mother as well. Pt has refused to allow her mother to visit for several days now. Her mother states she is supportive of pt taking an antipsychotic medication and has told her this. Pt states, "All I need is help with my trauma." Objective: Vital Signs Temp Pulse Resp BP Pulse Ox 36.7 C 116 H 16 115/58 L 98 12/07/17 06:00 12/07/17 06:00 12/07/17 06:00 12/07/17 06:00 12/07/17 06:00 MSE: Agitated, singing. Sitting on floor. Hands and arms are shaking coarsely , worse when pt demonstrates the tremor for me. Affect is irritable, labile. Mood is "terrible." TP is disorganized. TC reveals paranoid, somatic and bizarre delusions. - Time Spent With Patient Time Spent With Patient: 25" ICD10 Worksheet Patient Problems: Problems Problem Status Onset Bipolar affective, manic, severe w/ psych Acute Cannabis use disorder, severe, dependence Acute Conversion disorder Acute Histrionic behavior Acute Migraine Acute Panic attacks Acute
[2017-12-07] MEDS ORDERED: OLANZapine 10 MG/2 ML VIAL IM PRN ×2 (16:27→16:57)
[2017-12-07] MEDS: OLANZapine DISINTEGR 10 MG TAB PO PRN (17:30)
[2017-12-07] MEDS: diphenhydrAMINE 25 MG CAP PO PRN (18:15)
[2017-12-07] MEDS: DIAZEPAM 2 MG TAB PO SCH (20:32)
[2017-12-07] MEDS: LITHIUM CARBONATE ER 300 MG TAB PO SCH (20:32)
[2017-12-08] MEDS: LORazepam 0.5 MG TAB PO PRN (06:49)
[2017-12-08] MEDS: PRAZOSIN HCL 1 MG CAP PO SCH ×2 (08:19→20:29)
[2017-12-08] MEDS: IBUPROFEN 200 MG TAB PO PRN (08:25)
[2017-12-08] MEDS: ARIPiprazole 2 MG TAB PO SCH ×2 (08:32→10:54)
[2017-12-08] MEDS: OLANZapine DISINTEGR 10 MG TAB PO PRN (10:47)
--- NOTE | 2017-12-08 14:27 | SOAPPROG ---
SOAP Progress Note Assessment/Plan: Assessment: Plan: 12/03/17 15:07 Psychosis/mood: Improving. Will add Abilify at 1mg and monitor. 12/06/17 15:50 Psychosis/Mood: Doing poorly without meds. Will monitor for now, repeat Emeds if necessary. Will discuss meds further with pt tomorrow and if she continues to refuse voluntary PO antipsychotic medications, will petition for COM. This is not ideal due to her seeing a private psychiatrist in the community and not therefore being able to transfer certification or meds at d/c. 12/07/17 16:24 Psychosis/Mood: No change, perhaps worse today. Need to proceed with involuntary meds as she is not improving without an antipsychotic medication. 12/08/17 14:30 Psychosis/Mood: Remains quite ill. Will CCM inc: E-meds. Letter sent for COM. Subjective: Pt seen, discussed with staff. Agitated, yelling, non-compliant this morning. Required IM E-med due to severity of agitation. Good effect from IM Zyprexa. Unable to effectively interact with others. I discussed with her the plan of care inc: my intention to seek COM if she continues to refuse antipsychotics. She argues that I don't have the authority to do this. Screaming and crying by end of interview. Ultimately refused PO Abilify again today and received IM Zyprexa instead. Objective: Vital Signs Temp Pulse Resp BP Pulse Ox 36.7 C 102 H 14 106/62 98 12/08/17 06:00 12/08/17 06:00 12/08/17 06:00 12/08/17 06:00 12/08/17 06:00 MSE: Agitated, angry, oppositional, impulsive. Affect is labile, irritable. Mood is "terrible." TP disorganized. TC reveals paranoid and grandiose delusions. - Time Spent With Patient Time Spent With Patient: 25" ICD10 Worksheet Patient Problems: Problems Problem Status Onset Bipolar affective, manic, severe w/ psych Acute Cannabis use disorder, severe, dependence Acute Conversion disorder Acute Histrionic behavior Acute Migraine Acute Panic attacks Acute
[2017-12-08] MEDS: LITHIUM CARBONATE ER 300 MG TAB PO SCH (20:28)
[2017-12-08] MEDS: DIAZEPAM 2 MG TAB PO SCH (20:29)
[2017-12-09] MEDS: ARIPiprazole 2 MG TAB PO SCH (12:23)
[2017-12-09] MEDS: PRAZOSIN HCL 1 MG CAP PO SCH ×2 (12:25→20:45)
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
--- NOTE | 2017-12-09 15:19 | ASMTCMCOM ---
CM Note CM Note Notes: The patient requested that this medical technical writer stand outside the room because she has "a PTSD response every time someone comes into the room." In addition, she asked whether her fiance, Jareth, had come during visiting hours. She was observed lying down in bed. The patient made intermittent eye contact. The patient requested to be seen by the hospitalist for a bruise on her arm. [facility] staff reported that overnight she was heard calling out for Jareth and complaining of auditory hallucinations. She continues to refuse Abilify. Date Signed: 12/09/2017 03:03 PM Electronically Signed By:Tyesha Kumar
[2017-12-09] MEDS: DIAZEPAM 2 MG TAB PO SCH (20:44)
[2017-12-09] MEDS: LITHIUM CARBONATE ER 300 MG TAB PO SCH (20:44)
[2017-12-10] MEDS: PRAZOSIN HCL 1 MG CAP PO SCH ×2 (11:25→20:38)
[2017-12-10] MEDS: ARIPiprazole 2 MG TAB PO SCH (11:25)
[2017-12-10] MEDS: ACETAMINOPHEN 325 MG TAB PO PRN (11:26)
--- NOTE | 2017-12-10 12:23 | ASMTCMCOM ---
CM Note CM Note Notes: The patient refused to attend clinical treatment team rounds. Staff attempted to delay the meeting and the patient remained unable to participate. The provider has a COM hearing scheduled for Wednesday, 12/13. The patient reportedly continues to call out for "Jareth." The patient complained of bowel movement issues; reporting IBS to CC. As she continued, the patient stated, "It's just me and the wall here. I'm trying to get God out. My first psych made me believe in God. Do you believe in God?" [facility] staff reported the patient has been observed pacing in the evening and appears more calm and subdued. Date Signed: 12/10/2017 12:03 PM Electronically Signed By:Tyesha Kumar
--- NOTE | 2017-12-10 14:49 | SOAPPROG ---
SOAP Progress Note Assessment/Plan: Assessment: Plan: 12/03/17 15:07 Psychosis/mood: Improving. Will add Abilify at 1mg and monitor. 12/06/17 15:50 Psychosis/Mood: Doing poorly without meds. Will monitor for now, repeat Emeds if necessary. Will discuss meds further with pt tomorrow and if she continues to refuse voluntary PO antipsychotic medications, will petition for COM. This is not ideal due to her seeing a private psychiatrist in the community and not therefore being able to transfer certification or meds at d/c. 12/07/17 16:24 Psychosis/Mood: No change, perhaps worse today. Need to proceed with involuntary meds as she is not improving without an antipsychotic medication. 12/08/17 14:30 Psychosis/Mood: Remains quite ill. Will [facility] inc: E-meds. Letter sent for COM. 12/09/17 14:14 Psychosis/Mood: Improved with several doses of Zyprexa. I have requested second opinion from Dr. Hsieh regarding further E-meds. In process of scheduling involuntary med hearing. Will CCM, likely restart E-meds after second opinion. 12/10/17 14:50 Psychosis/Mood: Some improvement. Remains quite ill. CCM. Subjective: Pt seen, discussed with staff. Slept >8hrs last night. Took Abilify voluntarily this morning. Remains psychotic, believing her unseen boyfriend "Jareth" is hiding on the unit or out in the lobby. She will frequently yell to him. Continues to report AH's. Remains paranoid that she is being spied on and that there are people who want to kill her. Continues to refuse to interact with me beyond superficial conversation from the door to her room. Objective: Vital Signs Temp Pulse Resp BP Pulse Ox 36.8 C 70 16 109/67 97 12/10/17 06:00 12/10/17 06:00 12/10/17 06:00 12/10/17 06:00 12/10/17 06:00 MSE: Calmer, guarded. Affect is labile, though less intense. Mood is "great. " TP disorganized. TC reveals paranoid and erotomanic delusions, AH's. - Time Spent With Patient Time Spent With Patient: 15" ICD10 Worksheet Patient Problems: Problems Problem Status Onset Bipolar affective, manic, severe w/ psych Acute Cannabis use disorder, severe, dependence Acute Conversion disorder Acute Histrionic behavior Acute Migraine Acute Panic attacks Acute
[2017-12-10] MEDS: LITHIUM CARBONATE ER 300 MG TAB PO SCH (20:38)
[2017-12-10] MEDS: DIAZEPAM 2 MG TAB PO SCH (20:43)
[2017-12-11] MEDS: PRAZOSIN HCL 1 MG CAP PO SCH ×2 (08:23→21:06)
[2017-12-11] MEDS: ARIPiprazole 2 MG TAB PO SCH (08:24)
[2017-12-11] MEDS: LORazepam 0.5 MG TAB PO PRN ×2 (11:05→21:31)
[2017-12-11] MEDS: OLANZapine DISINTEGR 10 MG TAB PO PRN (11:05)
[2017-12-11] MEDS: ACETAMINOPHEN 325 MG TAB PO PRN ×2 (11:13→21:07)
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
[2017-12-11] MEDS: DIAZEPAM 2 MG TAB PO SCH (21:06)
[2017-12-11] MEDS: LITHIUM CARBONATE ER 300 MG TAB PO SCH (21:06)
[2017-12-12] MEDS: ARIPiprazole 2 MG TAB PO SCH (08:25)
[2017-12-12] MEDS: PRAZOSIN HCL 1 MG CAP PO SCH ×2 (08:25→20:56)
--- NOTE | 2017-12-12 12:57 | ASMTCMCOM ---
CM Note CM Note Notes: Pt. appeared hesitant to meet with CC, but eventually did. Pt. stated she is "wanting an update on progress with Abilify". Pt. reports she "slept like a rock". 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 Pt. stated she would like to know when she can discharge. Pt. agreed to meet with the treatment team on Wednesday. Pt. stated she doesn't think she should take valium and ativan at the same time, stating they cause nightmares. Pt. did not report any nightmares last night. Pt. stated she cannot take more than 5mg of Ativan because it "makes me aggressive". Pt. denied SI, HI, and AVH. Pt. reports paranoia from her trauma. Pt. stated she was reading the Bible earlier and it triggered her PTSD. Pt. spoke about having tape put over her mouth if she pronounced a word wrong from the Bible in the past. Pt. presents as alert, anxious, shaky, no eye contact, and somewhat guarded. Staff report pt. sleeping 8 hours, eating slightly more, and medication complaint. Date Signed: 12/12/2017 12:57 PM Electronically Signed By:Doris Holden
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
[2017-12-12] MEDS: LITHIUM CARBONATE ER 300 MG TAB PO SCH (18:09)
[2017-12-12] MEDS: DIAZEPAM 2 MG TAB PO SCH (20:56)
[2017-12-13] MEDS: LORazepam 0.5 MG TAB PO PRN ×2 (07:35→21:39)
[2017-12-13] MEDS: ARIPiprazole 2 MG TAB PO SCH (08:14)
[2017-12-13] MEDS: PRAZOSIN HCL 1 MG CAP PO SCH ×2 (08:14→21:01)
[2017-12-13] MEDS: ACETAMINOPHEN 325 MG TAB PO PRN (08:18)
--- NOTE | 2017-12-13 14:14 | ASMTCMCOM ---
CM Note CM Note Notes: CC checked in with ct. who was in bed. Ct. reported that she feels very sedated. CC asked ct. if she is planning on appearing at court this afternoon for her court ordered meds. Ct. reported that she feels too sedated to appear. Date Signed: 12/13/2017 02:13 PM Electronically Signed By:Nelly Madera
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
[2017-12-13] MEDS: DIAZEPAM 2 MG TAB PO SCH (20:59)
[2017-12-13] MEDS: LITHIUM CARBONATE ER 300 MG TAB PO SCH (21:00)
[2017-12-13] MEDS: OLANZapine DISINTEGR 10 MG TAB PO PRN (21:41)
[2017-12-14] MEDS: ARIPiprazole 2 MG TAB PO SCH (11:27)
[2017-12-14] MEDS: PRAZOSIN HCL 1 MG CAP PO SCH ×4 (11:29→20:49)
--- NOTE | 2017-12-14 13:37 | SOAPPROG ---
SOAP Progress Note Assessment/Plan: Assessment: Plan: 12/03/17 15:07 Psychosis/mood: Improving. Will add Abilify at 1mg and monitor. 12/06/17 15:50 Psychosis/Mood: Doing poorly without meds. Will monitor for now, repeat Emeds if necessary. Will discuss meds further with pt tomorrow and if she continues to refuse voluntary PO antipsychotic medications, will petition for COM. This is not ideal due to her seeing a private psychiatrist in the community and not therefore being able to transfer certification or meds at d/c. 12/07/17 16:24 Psychosis/Mood: No change, perhaps worse today. Need to proceed with involuntary meds as she is not improving without an antipsychotic medication. 12/08/17 14:30 Psychosis/Mood: Remains quite ill. Will [facility] inc: E-meds. Letter sent for COM. 12/09/17 14:14 Psychosis/Mood: Improved with several doses of Zyprexa. I have requested second opinion from Dr. Hsieh regarding further E-meds. In process of scheduling involuntary med hearing. Will CCM, likely restart E-meds after second opinion. 12/10/17 14:50 Psychosis/Mood: Some improvement. Remains quite ill. CCM. 12/14/17 13:34 Psychosis/Mood: Continued gradual improvement. CCM with increase in Abilify. Subjective: Pt seen, discussed with staff. Interviewed in Treatment Team meeting. She is able to discuss her treatment in general terms. Continues to focus on PTSD. Agreeable to increasing Abilify to 2mg. Requests meds be changed to HS. Notes no side effects from Abilify. Objective: Vital Signs Temp Pulse Resp BP Pulse Ox 36.9 C 86 16 105/56 L 96 12/14/17 06:00 12/14/17 06:00 12/14/17 06:00 12/14/17 06:00 12/14/17 06:00 MSE: Moderately anxious, closed body posture. Affect is anxious, constricted, somewhat dysphoric. Mood is "not too good." TP linear for brief periods. TC reveals continued paranoid and bizarre thoughts, AH's. - Time Spent With Patient Time Spent With Patient: 25" ICD10 Worksheet Patient Problems: Problems Problem Status Onset Bipolar affective, manic, severe w/ psych Acute Cannabis use disorder, severe, dependence Acute Conversion disorder Acute Histrionic behavior Acute Migraine Acute Panic attacks Acute
[2017-12-14] MEDS: ARIPiprazole 2 MG TAB PO ONE ×2 (19:57→20:53)
[2017-12-14] MEDS: LITHIUM CARBONATE ER 300 MG TAB PO SCH ×2 (19:57→20:49)
[2017-12-14] MEDS: DIAZEPAM 2 MG TAB PO SCH ×2 (19:58→20:49)
[2017-12-15] MEDS: PRAZOSIN HCL 1 MG CAP PO SCH ×2 (08:21→20:54)
--- NOTE | 2017-12-15 12:42 | SOAPPROG ---
SOAP Progress Note Assessment/Plan: Assessment: Plan: 12/03/17 15:07 Psychosis/mood: Improving. Will add Abilify at 1mg and monitor. 12/06/17 15:50 Psychosis/Mood: Doing poorly without meds. Will monitor for now, repeat Emeds if necessary. Will discuss meds further with pt tomorrow and if she continues to refuse voluntary PO antipsychotic medications, will petition for COM. This is not ideal due to her seeing a private psychiatrist in the community and not therefore being able to transfer certification or meds at d/c. 12/07/17 16:24 Psychosis/Mood: No change, perhaps worse today. Need to proceed with involuntary meds as she is not improving without an antipsychotic medication. 12/08/17 14:30 Psychosis/Mood: Remains quite ill. Will [facility] inc: E-meds. Letter sent for COM. 12/09/17 14:14 Psychosis/Mood: Improved with several doses of Zyprexa. I have requested second opinion from Dr. Hsieh regarding further E-meds. In process of scheduling involuntary med hearing. Will [facility], likely restart E-meds after second opinion. 12/10/17 14:50 Psychosis/Mood: Some improvement. Remains quite ill. CCM. 12/14/17 13:34 Psychosis/Mood: Continued gradual improvement. CCM with increase in Abilify. 12/15/17 12:42 Psychosis/Mood: Remains quite ill. Will [facility]. Day #2 on increased Abilify dose. Continue to build therapeutic alliance. Subjective: Pt seen, discussed with staff. She asks to meet in the [place] "because I'm not comfortable being alone with you [in my office with the door open] due to you traumatizing me." We meet in the [place] and she states she is willing to take the Abilify and wants to get home as soon as possible. She then abruptly terminates the interview without explanation. Objective: Vital Signs Temp Pulse Resp BP Pulse Ox 36.8 C 77 16 97/54 L 98 12/15/17 06:00 12/15/17 06:00 12/15/17 06:00 12/15/17 06:00 12/15/17 06:00 MSE: Adequately groomed, guarded. Affect is constricted, stable. Mood is " not good." TP disorganized. TC reveals continued paranoia, internal preoccupation. - Time Spent With Patient Time Spent With Patient: 15" ICD10 Worksheet Patient Problems: Problems Problem Status Onset Bipolar affective, manic, severe w/ psych Acute Cannabis use disorder, severe, dependence Acute Conversion disorder Acute Histrionic behavior Acute Migraine Acute Panic attacks Acute
[2017-12-15] MEDS: ARIPiprazole 2 MG TAB PO SCH (20:54)
[2017-12-15] MEDS: DIAZEPAM 2 MG TAB PO SCH (20:54)
[2017-12-15] MEDS: LITHIUM CARBONATE ER 300 MG TAB PO SCH (20:54)
[2017-12-16] MEDS: PRAZOSIN HCL 1 MG CAP PO SCH ×2 (08:21→20:16)
[2017-12-16] MEDS: ARIPiprazole 2 MG TAB PO SCH (20:15)
[2017-12-16] MEDS: DIAZEPAM 2 MG TAB PO SCH (20:16)
[2017-12-16] MEDS: LITHIUM CARBONATE ER 300 MG TAB PO SCH (20:16)
--- NOTE | 2017-12-16 20:48 | SOAPPROG ---
SOAP Progress Note Assessment/Plan: Assessment: Plan: 12/03/17 15:07 Psychosis/mood: Improving. Will add Abilify at 1mg and monitor. 12/06/17 15:50 Psychosis/Mood: Doing poorly without meds. Will monitor for now, repeat Emeds if necessary. Will discuss meds further with pt tomorrow and if she continues to refuse voluntary PO antipsychotic medications, will petition for COM. This is not ideal due to her seeing a private psychiatrist in the community and not therefore being able to transfer certification or meds at d/c. 12/07/17 16:24 Psychosis/Mood: No change, perhaps worse today. Need to proceed with involuntary meds as she is not improving without an antipsychotic medication. 12/08/17 14:30 Psychosis/Mood: Remains quite ill. Will [facility] inc: E-meds. Letter sent for [facility]. 12/09/17 14:14 Psychosis/Mood: Improved with several doses of Zyprexa. I have requested second opinion from Dr. Hsieh regarding further E-meds. In process of scheduling involuntary med hearing. Will [facility], likely restart E-meds after second opinion. 12/10/17 14:50 Psychosis/Mood: Some improvement. Remains quite ill. CCM. 12/14/17 13:34 Psychosis/Mood: Continued gradual improvement. CCM with increase in Abilify. 12/15/17 12:42 Psychosis/Mood: Remains quite ill. Will [facility]. Day #2 on increased Abilify dose. Continue to build therapeutic alliance. 12/16/17 20:47 Psychosis: REmains quite psychotic. Will increase Abilify to 5mg, monitor. Subjective: Pt seen, discussed with staff. Refused interview twice on rounds. Did say she was "perfect" in passing. Staff noted patient to be standing in the middle of her room having an animated conversation with unseen persons. Remains compliant with meds. No reported SE's. Objective: Vital Signs Temp Pulse Resp BP Pulse Ox 36.6 C 83 16 122/73 H 96 12/16/17 06:00 12/16/17 06:00 12/16/17 06:00 12/16/17 06:00 12/16/17 06:00 MSE: Distracted, internally focused. Affect is blunted to flat. TP appears disorganized. TC reveals obvious RIS. ICD10 Worksheet Patient Problems: Problems Problem Status Onset Bipolar affective, manic, severe w/ psych Acute Cannabis use disorder, severe, dependence Acute Conversion disorder Acute Histrionic behavior Acute Migraine Acute Panic attacks Acute
[2017-12-17] MEDS: LORazepam 0.5 MG TAB PO PRN (07:16)
[2017-12-17] MEDS: PRAZOSIN HCL 1 MG CAP PO SCH ×2 (08:26→21:04)
--- NOTE | 2017-12-17 16:15 | SOAPPROG ---
SOAP Progress Note Assessment/Plan: Assessment: Plan: 12/03/17 15:07 Psychosis/mood: Improving. Will add Abilify at 1mg and monitor. 12/06/17 15:50 Psychosis/Mood: Doing poorly without meds. Will monitor for now, repeat Emeds if necessary. Will discuss meds further with pt tomorrow and if she continues to refuse voluntary PO antipsychotic medications, will petition for COM. This is not ideal due to her seeing a private psychiatrist in the community and not therefore being able to transfer certification or meds at d/c. 12/07/17 16:24 Psychosis/Mood: No change, perhaps worse today. Need to proceed with involuntary meds as she is not improving without an antipsychotic medication. 12/08/17 14:30 Psychosis/Mood: Remains quite ill. Will [facility]: E-meds. Letter sent for COM. 12/09/17 14:14 Psychosis/Mood: Improved with several doses of Zyprexa. I have requested second opinion from Dr. Hsieh regarding further E-meds. In process of scheduling involuntary med hearing. Will [facility], likely restart E-meds after second opinion. 12/10/17 14:50 Psychosis/Mood: Some improvement. Remains quite ill. CCM. 12/14/17 13:34 Psychosis/Mood: Continued gradual improvement. CCM with increase in Abilify. 12/15/17 12:42 Psychosis/Mood: Remains quite ill. Will [facility]. Day #2 on increased Abilify dose. Continue to build therapeutic alliance. 12/16/17 20:47 Psychosis: REmains quite psychotic. Will increase Abilify to 5mg, monitor. 12/17/17 16:17 Psychosis: Slow improvement. Will increase Abilify to 5mg, monitor. Subjective: Pt seen, discussed with staff. Reports feeling "just fine." Continues to isolate in her room, doesn't allow me to enter due to "trauma." She continues to RIS and make odd hand gestures. Struggles to interact meaningfully with others due to internal preoccupation. Objective: Vital Signs Temp Pulse Resp BP Pulse Ox 36.9 C 85 14 98/55 L 99 12/17/17 06:00 12/17/17 06:00 12/17/17 06:00 12/17/17 06:12/17/17 06:00 MSE: Marginally groomed, guarded. Affect is constricted, anxious. Mood is "bad, no, good." TP is generally linear. TC reveals continued odd beliefs, somatic preoccupations/delusions and paranoia. AH's persist. ICD10 Worksheet Patient Problems: Problems Problem Status Onset Bipolar affective, manic, severe w/ psych Acute Cannabis use disorder, severe, dependence Acute Conversion disorder Acute Histrionic behavior Acute Migraine Acute Panic attacks Acute
[2017-12-17] MEDS: ARIPiprazole 2 MG TAB PO SCH (20:59)
[2017-12-17] MEDS: DIAZEPAM 2 MG TAB PO SCH (21:03)
[2017-12-17] MEDS: LITHIUM CARBONATE ER 300 MG TAB PO SCH (21:03)
[2017-12-18] MEDS: PRAZOSIN HCL 1 MG CAP PO SCH ×2 (08:46→21:01)
--- NOTE | 2017-12-18 16:07 | SOAPPROG ---
SOAP Progress Note Assessment/Plan: Assessment: Most recent note from Dr. Dumont: 12/14/17 13:34 Psychosis/Mood: Continued gradual improvement. CCM with increase in Abilify. 12/15/17 12:42 Psychosis/Mood: Remains quite ill. Will [facility]. Day #2 on increased Abilify dose. Continue to build therapeutic alliance. 12/16/17 20:47 Psychosis: REmains quite psychotic. Will increase Abilify to 5mg, monitor. 12/17/17 16:17 Psychosis: Slow improvement. Will increase Abilify to 5mg, monitor. PLAN: 12/18/17 16:03 1. Patient still delusional and psychotic. Claims Dr. Posada told her to "cancel all meds" b/c she's "not bipolar." 2. Slow titration of antipsychotic/mood stabilizer d/t prior NMS/EPS. 3. Ate 20% of meals. 4. Isolating in room, talking out loud to herself, making odd hand gestures like she's picking at things in the air. 5. No change to tx regimen. Subjective: Initially patient was lying in bed and refused to allow MD into room b/c she was "micro-sleeping." However, last MD saw patient in [place] and she said, "Dr. Hsieh, do you want to talk to me now?" Patient said she spoke to her outpatient psychiatrist by phone and he supposedly told her "I have PTSD and not bipolar," so he wanted to "cancel all my meds." Abruptly patient said, "I'm having a PTSD attack" and ended the conversation. Objective: Vital Signs Temp Pulse Resp BP Pulse Ox 36.9 C 85 14 98/55 L 99 12/17/17 06:00 12/17/17 06:00 12/17/17 06:00 12/17/17 06:00 12/17/17 06:00 MSE: Affect: Blunted, labile Mood: "OK" TP: Disorganized, illogical TC: Delusions, paranoia, no SI/HI Insight/Judgment: Impaired - Time Spent With Patient Time Spent With Patient: 15" - Pending Discharge Pending Discharge Within 24 Hours: No Pending Discharge Within 48 Hours: No ICD10 Worksheet Patient Problems: Problems Problem Status Onset Bipolar affective, manic, severe w/ psych Acute Cannabis use disorder, severe, dependence Acute Conversion disorder Acute Histrionic behavior Acute Migraine Acute Panic attacks Acute
[2017-12-18] MEDS: LITHIUM CARBONATE ER 300 MG TAB PO SCH (20:59)
[2017-12-18] MEDS: ARIPiprazole 2 MG TAB PO SCH (20:59)
[2017-12-18] MEDS: DIAZEPAM 2 MG TAB PO SCH (21:03)
[2017-12-19] MEDS: diphenhydrAMINE 25 MG CAP PO PRN ×3 (00:40→17:26)
[2017-12-19] MEDS: LORazepam 0.5 MG TAB PO PRN (06:20)
[2017-12-19] MEDS: PRAZOSIN HCL 1 MG CAP PO SCH ×2 (08:04→19:46)
--- NOTE | 2017-12-19 14:40 | ASMTCMCOM ---
CM Note CM Note Notes: CC has attempted to meet with pt for the past three days. Pt. has declined to meet with CC each day. Today pt stated "I don't feel very good today. Don't want to meet today." Pt. presents as disorganized, guarded, responding to internal stimuli, and lacking insight. Staff report pt. sleeping 1 hours, being medication complaint with COM, and eating minimally. Date Signed: 12/19/2017 02:40 PM Electronically Signed By:Doris Holden
--- NOTE | 2017-12-19 15:57 | SOAPPROG ---
SOAP Progress Note Assessment/Plan: Assessment: Most recent note from Dr. Dumont: 12/14/17 13:34 Psychosis/Mood: Continued gradual improvement. CCM with increase in Abilify. 12/15/17 12:42 Psychosis/Mood: Remains quite ill. Will [facility]. Day #2 on increased Abilify dose. Continue to build therapeutic alliance. 12/16/17 20:47 Psychosis: REmains quite psychotic. Will increase Abilify to 5mg, monitor. 12/17/17 16:17 Psychosis: Slow improvement. Will increase Abilify to 5mg, monitor. PLAN: 12/18/17 16:03 1. Patient still delusional and psychotic. Claims Dr. Posada told her to "cancel all meds" b/c she's "not bipolar." 2. Slow titration of antipsychotic/mood stabilizer d/t prior NMS/EPS. 3. Ate 20% of meals. 4. Isolating in room, talking out loud to herself, making odd hand gestures like she's picking at things in the air. 5. No change to tx regimen. PLAN: 12/19/17 15:54 1. No change. Psychotic, paranoid, delusional. 2. Did not eat breakfast or lunch today. Drank some fluids. 3. Slept only 1 hr last night. 4. Recommend continued titration of Abilify toward 15mg daily. Subjective: Patient continues to be psychotic, paranoid, delusional, responding to IS, experiences AH and possibly VH (observed picking at air), but denies AH/VH. When asked, patient says she is not hearing voices b/c "they're not going to my brain, they're just coming out of my mouth." Yesterday, she ate 50% of breakfast and no lunch, but today she did not eat any breakfast. She did drink some fluids. Objective: Vital Signs Temp Pulse Resp BP Pulse Ox 36.4 C 108 H 16 114/72 96 12/19/17 06:00 12/19/17 06:00 12/19/17 06:00 12/19/17 06:00 12/19/17 06:00 MSE: Affect: Constricted Mood: "OK" TP: Disorganized, illogical TC: Denies SI/HI, still paranoid and delusional Perception: RIS, denies AH/VH, but talks to herself in room alone Insight/Judgment: Impaired - Time Spent With Patient Time Spent With Patient: 15" - Pending Discharge Pending Discharge Within 24 Hours: No Pending Discharge Within 48 Hours: No ICD10 Worksheet Patient Problems: Problems Problem Status Onset Bipolar affective, manic, severe w/ psych Acute Cannabis use disorder, severe, dependence Acute Conversion disorder Acute Histrionic behavior Acute Migraine Acute Panic attacks Acute
[2017-12-19] MEDS: ACETAMINOPHEN 325 MG TAB PO PRN (17:26)
[2017-12-19] MEDS: LITHIUM CARBONATE ER 300 MG TAB PO SCH (19:45)
[2017-12-19] MEDS: ARIPiprazole 2 MG TAB PO SCH ×2 (19:46→20:05)
[2017-12-19] MEDS: DIAZEPAM 2 MG TAB PO SCH (19:46)
[2017-12-20] MEDS: PRAZOSIN HCL 1 MG CAP PO SCH ×3 (08:44→21:17)
--- NOTE | 2017-12-20 11:01 | ASMTCMCOM ---
CM Note CM Note Notes: CC confirmed family meeting tomorrow for client, doctor and CC. MOC noted, "we haven't seen her since she arrived because she has declined to see us when we come and try to visit." MOC would like the chance to speak to the doctor and lays eyes on client, etc. Family meeting confirmed for 12/21 at 11:30am Date Signed: 12/20/2017 11:00 AM Electronically Signed By:Kong Rangel
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
[2017-12-20] MEDS: ARIPiprazole 2 MG TAB PO SCH (19:59)
[2017-12-20] MEDS: DIAZEPAM 2 MG TAB PO SCH (20:00)
[2017-12-20] MEDS: LITHIUM CARBONATE ER 300 MG TAB PO SCH (20:00)
[2017-12-21] MEDS: PRAZOSIN HCL 1 MG CAP PO SCH ×2 (13:11→21:34)
--- NOTE | 2017-12-21 17:26 | SOAPPROG ---
SOAP Progress Note Assessment/Plan: Assessment: Plan: 12/03/17 15:07 Psychosis/mood: Improving. Will add Abilify at 1mg and monitor. 12/06/17 15:50 Psychosis/Mood: Doing poorly without meds. Will monitor for now, repeat Emeds if necessary. Will discuss meds further with pt tomorrow and if she continues to refuse voluntary PO antipsychotic medications, will petition for COM. This is not ideal due to her seeing a private psychiatrist in the community and not therefore being able to transfer certification or meds at d/c. 12/07/17 16:24 Psychosis/Mood: No change, perhaps worse today. Need to proceed with involuntary meds as she is not improving without an antipsychotic medication. 12/08/17 14:30 Psychosis/Mood: Remains quite ill. Will [facility]: E-meds. Letter sent for [facility]. 12/09/17 14:14 Psychosis/Mood: Improved with several doses of Zyprexa. I have requested second opinion from Dr. Hsieh regarding further E-meds. In process of scheduling involuntary med hearing. Will [facility], likely restart E-meds after second opinion. 12/10/17 14:50 Psychosis/Mood: Some improvement. Remains quite ill. CCM. 12/14/17 13:34 Psychosis/Mood: Continued gradual improvement. CCM with increase in Abilify. 12/15/17 12:42 Psychosis/Mood: Remains quite ill. Will [facility]. Day #2 on increased Abilify dose. Continue to build therapeutic alliance. 12/16/17 20:47 Psychosis: REmains quite psychotic. Will increase Abilify to 5mg, monitor. 12/17/17 16:17 Psychosis: Slow improvement. Will increase Abilify to 5mg, monitor. 12/20/17 14:09 Psychosis: Remains quite psychotic. Will increase Abilify further, monitor. I will call pt's mother to touch base about the Maintena. Will give in 24-36 hours after observing tolerability of increased oral dose. 12/21/17 17:25 Psychosis: Remains actively psychotic. [facility]. Will give Maintena tomorrow. Subjective: Pt seen, discussed with staff. Remains aloof, internally focused. Appears to respond to IS, talking to self in room. Demonstrated sexually inappropriate behaviors to male staff, disrobing. Now on ISP. Remains focused on "trauma". Tolerated increased dose of Abilify well with no evidence of EPS/akathisia. Objective: Vital Signs Temp Pulse Resp BP Pulse Ox 36.8 C 98 16 105/55 L 97 12/21/17 06:00 12/21/17 06:00 12/21/17 06:00 12/21/17 06:00 12/21/17 06:00 - Time Spent With Patient Time Spent With Patient: 15" ICD10 Worksheet Patient Problems: Problems Problem Status Onset Bipolar affective, manic, severe w/ psych Acute Cannabis use disorder, severe, dependence Acute Conversion disorder Acute Histrionic behavior Acute Migraine Acute Panic attacks Acute
[2017-12-21] MEDS ORDERED: ARIPiprazole 2 MG TAB PO SCH (17:27)
[2017-12-21] MEDS ORDERED: ARIPiprazole 5 MG TAB PO SCH (21:00)
[2017-12-21] MEDS: LITHIUM CARBONATE ER 300 MG TAB PO SCH (21:14)
[2017-12-21] MEDS: DIAZEPAM 2 MG TAB PO SCH (21:15)
[2017-12-22] MEDS: MELATONIN 3 MG TAB PO PRN ×2 (02:57→20:56)
[2017-12-22] MEDS: diphenhydrAMINE 25 MG CAP PO PRN (02:57)
[2017-12-22] MEDS ORDERED: ARIPIPRAZOLE 300 MG IM ONE (11:00)
[2017-12-22] MEDS: PRAZOSIN HCL 1 MG CAP PO SCH (11:26)
--- NOTE | 2017-12-22 12:02 | ASMTCMCOM ---
CM Note CM Note Notes: The patient appeared to be responding to internal stimuli. She reported that she speaks aloud when she is trying to sleep. The patient asked for an updated discharge plan. She reported that she had not spoken with the psychiatrist yet. She stated, "I have people who are trying to get a hold of me and it's not going through. I don't know what's going on. They are all on my list." The patient explained that a friend that she spoke with notified her of this. The patient reported that the only people she doesn't want contact with are her parents. Date Signed: 12/22/2017 12:01 PM Electronically Signed By:Tyesha Kumar
[2017-12-22] MEDS: ARIPIPRAZOLE (ABILIFY MAINTENA) 400 MG VIAL IM ONE ×2 (15:07→15:30)
--- NOTE | 2017-12-22 16:46 | SOAPPROG ---
SOAP Progress Note Assessment/Plan: Assessment: Plan: 12/03/17 15:07 Psychosis/mood: Improving. Will add Abilify at 1mg and monitor. 12/06/17 15:50 Psychosis/Mood: Doing poorly without meds. Will monitor for now, repeat Emeds if necessary. Will discuss meds further with pt tomorrow and if she continues to refuse voluntary PO antipsychotic medications, will petition for COM. This is not ideal due to her seeing a private psychiatrist in the community and not therefore being able to transfer certification or meds at d/c. 12/07/17 16:24 Psychosis/Mood: No change, perhaps worse today. Need to proceed with involuntary meds as she is not improving without an antipsychotic medication. 12/08/17 14:30 Psychosis/Mood: Remains quite ill. Will [facility] inc: E-meds. Letter sent for [facility]. 12/09/17 14:14 Psychosis/Mood: Improved with several doses of Zyprexa. I have requested second opinion from Dr. Hsieh regarding further E-meds. In process of scheduling involuntary med hearing. Will [facility], likely restart E-meds after second opinion. 12/10/17 14:50 Psychosis/Mood: Some improvement. Remains quite ill. CCM. 12/14/17 13:34 Psychosis/Mood: Continued gradual improvement. CCM with increase in Abilify. 12/15/17 12:42 Psychosis/Mood: Remains quite ill. Will [facility]. Day #2 on increased Abilify dose. Continue to build therapeutic alliance. 12/16/17 20:47 Psychosis: REmains quite psychotic. Will increase Abilify to 5mg, monitor. 12/17/17 16:17 Psychosis: Slow improvement. Will increase Abilify to 5mg, monitor. 12/20/17 14:09 Psychosis: Remains quite psychotic. Will increase Abilify further, monitor. I will call pt's mother to touch base about the Maintena. Will give in 24-36 hours after observing tolerability of increased oral dose. 12/21/17 17:25 Psychosis: Remains actively psychotic. [facility]. Will give Maintena tomorrow. 12/22/17 16:46 Psychosis: No change. Received [place] today. Hope to see improvement. Will d/c prazosin as she continues to consistently refuse this and write for PRN propranolol in case she experiences akathisia. Will decrease PO dose of Abilify to 5mg. Subjective: Pt seen, discussed with staff. Did not want to talk to me again today, referring to traumatization. I attempted to discuss again the use of the Abilify Maintena. She states she does not want to take this. I outlined the goals for this and she became agitated and asked me to leave. She was given it by RN with resistance. Objective: Vital Signs Temp Pulse Resp BP Pulse Ox 36.7 C 83 16 113/65 98 12/22/17 06:00 12/22/17 06:00 12/22/17 06:00 12/22/17 06:00 12/22/17 06:00 MSE: Moderately agitated, guarded. Affect is constricted, expansive. Mood is "terrible." TP tangential. TC reveals paranoid delusions, IOR's, AH's. AIMS exam performed by me Wednesday, Wednesday and today. All are 3 due to bilateral hand tremors. - Time Spent With Patient Time Spent With Patient: 15" ICD10 Worksheet Patient Problems: Problems Problem Status Onset Bipolar affective, manic, severe w/ psych Acute Cannabis use disorder, severe, dependence Acute Conversion disorder Acute Histrionic behavior Acute Migraine Acute Panic attacks Acute
[2017-12-22] MEDS: ARIPiprazole 5 MG TAB PO SCH (20:49)
[2017-12-22] MEDS: LITHIUM CARBONATE ER 300 MG TAB PO SCH (20:49)
[2017-12-22] MEDS: DIAZEPAM 2 MG TAB PO SCH (20:49)
[2017-12-22] MEDS: PROPRANOLOL HCL 10 MG TAB PO PRN (20:56)
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
--- NOTE | 2017-12-23 11:29 | ASMTCMCOM ---
CM Note CM Note Notes: CC checked in with ct. who appears to have a much brighter affect. Ct. was clearer about her goals and plan for discharge. However, she still has some delusional ideas. Per ct. she would like to discharge to living with grandmother. She said that in the past she transitioned to her care before moving back home. MISHEL lives in an assisted care so it is not clear if this is possible. CC left a VM for GM asking for a call back. Date Signed: 12/23/2017 11:29 AM Electronically Signed By:Nelly Madera
--- NOTE | 2017-12-23 12:46 | ASMTBHDC ---
Notes Note: Notes: Per ct. request CC called grandmother to figure out if she would be willing to have ct. stay with her upon discharge. Grandmother said that she needs to think about it. She is also going to discuss it with ct.'s parents. Grandma agreed to call back with her decision. Date Signed: 12/23/2017 12:45 PM Electronically Signed By:Nelly Madera
[2017-12-23] MEDS: PROPRANOLOL HCL 10 MG TAB PO PRN (20:38)
[2017-12-23] MEDS: ARIPiprazole 5 MG TAB PO SCH (20:38)
[2017-12-23] MEDS: LITHIUM CARBONATE ER 300 MG TAB PO SCH (20:38)
[2017-12-23] MEDS: MELATONIN 3 MG TAB PO PRN (20:38)
[2017-12-23] MEDS: DIAZEPAM 2 MG TAB PO SCH (20:39)
--- NOTE | 2017-12-24 13:11 | ASMTCMCOM ---
CM Note CM Note Notes: CC checked in with ct. and discussed discharge planning. Let ct. know that discharging to grandma's home is not an option since grandma is not able to accept her. Ct. escalated and started voicing delusional content speaking about her "" and moving her things from parents' home to a new residence with her . At this point ct.. became so agitated that she ended the conversation abruptly. Date Signed: 12/24/2017 01:09 PM Electronically Signed By:Nelly Madera
--- NOTE | 2017-12-24 13:23 | ASMTBHDC ---
Notes Note: Notes: Summary of several calls regarding ct.: CC received a call from ct.'s grandma explaining that she cannot take ct. in due to assisted living restrictions. GM also reported that she is caring for her who has middle stage dementia and that grandfather gets very agitated and anxious when ct. is around. MOC delivered a written summary with history of ct.'s care compiled by parents. At the end of the summary parents listed their expectations from her providers. Among their request is to be updated on and consulted about her discharge. They would like to be included in the discharge planning even though ct. has been refusing to sign a SUJIT for them. This CC called [facility] and explained that we are unable to share any information related to ct. without a SUJIT. This CC recommended parents look into the option of initiating legal guardianship procedures if the deem it appropriate. Date Signed: 12/24/2017 01:22 PM Electronically Signed By:Nelly Madera
--- NOTE | 2017-12-24 16:16 | SOAPPROG ---
SOAP Progress Note Assessment/Plan: Assessment: Plan: 12/03/17 15:07 Psychosis/mood: Improving. Will add Abilify at 1mg and monitor. 12/06/17 15:50 Psychosis/Mood: Doing poorly without meds. Will monitor for now, repeat Emeds if necessary. Will discuss meds further with pt tomorrow and if she continues to refuse voluntary PO antipsychotic medications, will petition for COM. This is not ideal due to her seeing a private psychiatrist in the community and not therefore being able to transfer certification or meds at d/c. 12/07/17 16:24 Psychosis/Mood: No change, perhaps worse today. Need to proceed with involuntary meds as she is not improving without an antipsychotic medication. 12/08/17 14:30 Psychosis/Mood: Remains quite ill. Will [facility]: E-meds. Letter sent for [facility]. 12/09/17 14:14 Psychosis/Mood: Improved with several doses of Zyprexa. I have requested second opinion from Dr. Hsieh regarding further E-meds. In process of scheduling involuntary med hearing. Will [facility], likely restart E-meds after second opinion. 12/10/17 14:50 Psychosis/Mood: Some improvement. Remains quite ill. CCM. 12/14/17 13:34 Psychosis/Mood: Continued gradual improvement. CCM with increase in Abilify. 12/15/17 12:42 Psychosis/Mood: Remains quite ill. Will [facility]. Day #2 on increased Abilify dose. Continue to build therapeutic alliance. 12/16/17 20:47 Psychosis: REmains quite psychotic. Will increase Abilify to 5mg, monitor. 12/17/17 16:17 Psychosis: Slow improvement. Will increase Abilify to 5mg, monitor. 12/20/17 14:09 Psychosis: Remains quite psychotic. Will increase Abilify further, monitor. I will call pt's mother to touch base about the Maintena. Will give in 24-36 hours after observing tolerability of increased oral dose. 12/21/17 17:25 Psychosis: Remains actively psychotic. [facility]. Will give Maintena tomorrow. 12/22/17 16:46 Psychosis: No change. Received EDMONDSON today. Hope to see improvement. Will d/c prazosin as she continues to consistently refuse this and write for PRN propranolol in case she experiences akathisia. Will decrease PO dose of Abilify to 5mg. 12/23/17 10:51 Psychosis: Improved. Tolerating Maintena well. CCM. 12/24/17 16:17 Psychosis: Slow improvement. Remains psychotic. [facility]. Subjective: Pt seen, discussed with staff. Remains elevated, laughing and talking to herself. Talking in an animated fashion to unseen persons in her room. No c/o' s. Pt's mother supplied some written history that I reviewed. Objective: Vital Signs Temp Pulse Resp BP Pulse Ox 36.1 C 81 16 95/50 L 96 12/24/17 06:00 12/24/17 06:00 12/24/17 06:00 12/24/17 06:00 12/24/17 06:00 MSE: Moderately agitated, laughing to herself. Internally preoccupied. Affect is elevated, expansive. Mood is "great." TP is tangential. TC reveals ongoing paranoid, erotomanic and somatic delusions as well as AH's. - Time Spent With Patient Time Spent With Patient: 15" ICD10 Worksheet Patient Problems: Problems Problem Status Onset Bipolar affective, manic, severe w/ psych Acute Cannabis use disorder, severe, dependence Acute Conversion disorder Acute Histrionic behavior Acute Migraine Acute Panic attacks Acute
[2017-12-24] MEDS: DIAZEPAM 2 MG TAB PO SCH (21:07)
[2017-12-24] MEDS: LITHIUM CARBONATE ER 300 MG TAB PO SCH (21:08)
[2017-12-24] MEDS: ARIPiprazole 5 MG TAB PO SCH (21:08)
[2017-12-24] MEDS: PROPRANOLOL HCL 10 MG TAB PO PRN (21:12)
--- NOTE | 2017-12-25 07:39 | SOAPPROG ---
SOAP Progress Note Assessment/Plan: Assessment: 27yo CF with atypical BMD, possible schizoaffective d/o. Has been with pressured speech, grandiose/erotomanic delusions, AH, paranoia, ideas of reference and disorganized, decompensating clinically with just Li as mood stabilizer, and has been refusing or bargaining down antipsychotic medications due to believing she is allergic to all. Has required seclusion and Emeds several times since admission, slowly improving with medication compliance although continues to lack insight into her need for any medications. 12/25/17 14:27 slept 9 hr. received Abilify Maintenna on 12/22. now asking to resume Prazosin which had been d/cd b/c she had been refusing consistently. apparently still with paranoia about her parents, asked that emergency contact be changed from father to P. On interview, regarding recent Abilify IM, "I'm having tardive dyskinesia (not clinically evident)...I'd like to stop the propranolol" and requests to resume Minipress for her PTSD triggers. "I have a mood disorder, I was sick and kind of delusional, that happens sometimes...I think the plan is for discharge today". 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 Reports otherwise trying to practice mindfulness to avoid PTSD triggers. MSE: slightly disheveled, casually dressed, nml speech volume and articulation, talkative, somewhat rambling, not pressured, more redirectable, affect full, mood "good" ,tp- still tangential, at times disorganized with contradictory requests, but with some periods of being more reality based and expressing a bit more insight, tc-paranoia about parents, and some somatic delusions around side effects. brief moments of what appeared to be talking to self, and declined to state if experiencing AH, admitted she would not say if she was. Denied SI. i/j both impaired PLAN: cont current meds Abilify, seems with gradual steady improvements. no med changes indicated at this time Objective: Vital Signs Temp Pulse Resp BP Pulse Ox 36.9 C 81 14 104/66 97 12/25/17 06:00 12/25/17 06:00 12/25/17 06:00 12/25/17 06:00 12/25/17 06:00 - Pending Discharge Pending Discharge Within 24 Hours: No Pending Discharge Within 48 Hours: No ICD10 Worksheet Patient Problems: Problems Problem Status Onset Bipolar affective, manic, severe w/ psych Acute Cannabis use disorder, severe, dependence Acute Conversion disorder Acute Histrionic behavior Acute Migraine Acute Panic attacks Acute
[2017-12-25] MEDS: PROPRANOLOL HCL 10 MG TAB PO PRN (09:49)
[2017-12-25] MEDS: MAGNESIUM HYDROXIDE 30 ML UDCUP PO PRN (09:52)
--- NOTE | 2017-12-25 13:34 | ASMTBHDC ---
Notes Note: Notes: Pt. reports feeling "okay". Pt. stated she is having several medication issues including, Tardiva Dyskinesia, akathisia and dysonia symptoms. Pt. stated upon discharge she will stay with her boyfriend, Jareth Florentino, but pt. cannot remember his phone number. Pt provided CC with boyfriend's email address "[email or web address]." Pt. stated her boyfriend is her medical POA. According to pt's chart from her stay in 04/2017, "pt did sign SUJIT for bf who is med proxy. bf is not POA because nothing has been taken to court.". German's previous phone number ([phone]) has since been disconnected. Pt. stated she wants to try a different medication due to "nightmare have been pretty bad". Pt. denied SI, HI, AVH and paranoia. Pt. presents as alert, calm, suspicious of CC, corrected CC's written notes, poor eye contact (watching notes), and appeared groomed. Date Signed: 12/25/2017 01:34 PM Electronically Signed By:Doris Holden
[2017-12-25] MEDS: LITHIUM CARBONATE ER 300 MG TAB PO SCH (20:52)
[2017-12-25] MEDS: ARIPiprazole 5 MG TAB PO SCH (20:52)
[2017-12-25] MEDS: DIAZEPAM 2 MG TAB PO SCH (20:52)
[2017-12-25] MEDS: MELATONIN 3 MG TAB PO PRN (21:42)
[2017-12-26] MEDS: ACETAMINOPHEN 325 MG TAB PO PRN (08:04)
[2017-12-26] MEDS: MAGNESIUM HYDROXIDE 30 ML UDCUP PO PRN (08:05)
[2017-12-26] MEDS: PROPRANOLOL HCL 10 MG TAB PO PRN ×2 (08:46→17:33)
--- NOTE | 2017-12-26 14:48 | ASMTBHDC ---
Notes Note: Notes: CC spoke with pt's mom, Nani Whitfield ([phone]). MOC visited today and stated pt. appears "still pretty delusional". MOC stated pt. was "talking to ex-boyfriend in her head". MOC stated pt's ex-boyfriend Jareth "wants nothing to do with her". MOC stated she does not want pt. to discharge to pt's grandparents, as they are not able to fully care for pt. MOC stated pt. can return home, but she wants to wait for pt. "to be more stable". MOC stated she would like to have a family meeting, and possibly include pt's M[facility] therapist, prior to discharge. MOC stated she will work on rules for pt. for coming home. MOC stated pt. "is very clever", adding pt's MD stated pt is "very convincing". MOC spoke about getting pt into a transitional program, [facility], but pt would have to be more stable and there are no openings until 01/27/18. MOC stated she would like pt to attend a day program or transitional groups, adding she doesn't want pt to "just sit in the basement". MOC stated pt. stated she doesn't like the way the medications make her feel. MO spoke about pt. possibly going to [facility] [place] and requested MD's recommendation about [facility] [place]. MOC stated a part of pt. discharging to their home is pt. would have to make her parents her medical POA. Date Signed: 12/26/2017 02:47 PM Electronically Signed By:Doris Holden
--- NOTE | 2017-12-26 15:16 | SOAPPROG ---
SOAP Progress Note Assessment/Plan: Assessment: 27yo CF with atypical BMD, possible schizoaffective d/o. Has been with pressured speech, grandiose/erotomanic delusions, AH, paranoia, ideas of reference and disorganized, decompensating clinically with just Li as mood stabilizer, and has been refusing or bargaining down antipsychotic medications due to believing she is allergic to all. Has required seclusion and Emeds several times since admission, slowly improving with medication compliance although continues to lack insight into her need for any medications. 12/25/17 14:27 slept 9 hr. received Abilify Maintenna on 12/22. now asking to resume Prazosin which had been d/cd b/c she had been refusing consistently. apparently still with paranoia about her parents, asked that emergency contact be changed from father to P. On interview, regarding recent Abilify IM, "I'm having tardive dyskinesia (not clinically evident)...I'd like to stop the propranolol" and requests to resume Minipress for her PTSD triggers. "I have a mood disorder, I was sick and kind of delusional, that happens sometimes...I think the plan is for discharge today". 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 Reports otherwise trying to practice mindfulness to avoid PTSD triggers. MSE: slightly disheveled, casually dressed, nml speech volume and articulation, talkative, somewhat rambling, not pressured, more redirectable, affect full, mood "good" ,tp- still tangential, at times disorganized with contradictory requests, but with some periods of being more reality based and expressing a bit more insight, tc-paranoia about parents, and some somatic delusions around side effects. brief moments of what appeared to be talking to self, and declined to state if experiencing AH, admitted she would not say if she was. Denied SI. i/j both impaired PLAN: cont current meds Abilify, seems with gradual steady improvements. no med changes indicated at this time 12/26/17 14:00 slept 7.5hr. told nursing staff that milk of magnesia helps her anxiety. signed SUJIT for her mother. states she read literature on Abilify and this "clarified everything, I feel it is working...reading it helped me reidentify my symptoms..." stating she now understands about dopamine and serotonin receptors. "this is the first time I feel happy". also talked about her hx of fibromyalgia and requesting gabapentin instead of cymbalta. MSE: brighter affect, good eye contact, nml speech rate, engaging, expressing more insight into her illness and need for medications, denied any AH, no SI, mood "happy" PLAN: cont on Abilify Maintenna improving Objective: Vital Signs Temp Pulse Resp BP Pulse Ox 36.9 C 86 16 101/66 96 12/26/17 06:00 12/26/17 08:46 12/26/17 08:46 12/26/17 08:46 12/26/17 08:46 - Time Spent With Patient Time Spent With Patient: 20min - Pending Discharge Pending Discharge Within 24 Hours: No Pending Discharge Within 48 Hours: No ICD10 Worksheet Patient Problems: Problems Problem Status Onset Bipolar affective, manic, severe w/ psych Acute Cannabis use disorder, severe, dependence Acute Conversion disorder Acute Histrionic behavior Acute Migraine Acute Panic attacks Acute
[2017-12-26] MEDS: DIAZEPAM 2 MG TAB PO SCH (20:32)
[2017-12-26] MEDS: LITHIUM CARBONATE ER 300 MG TAB PO SCH (20:32)
[2017-12-26] MEDS: ARIPiprazole 5 MG TAB PO SCH (20:32)
[2017-12-26] MEDS: MELATONIN 3 MG TAB PO PRN (20:59)
[2017-12-27] MEDS: PROPRANOLOL HCL 10 MG TAB PO PRN (09:22)
[2017-12-27] MEDS: LORazepam 0.5 MG TAB PO PRN (09:26)
--- NOTE | 2017-12-27 11:11 | SOAPPROG ---
SOAP Progress Note Assessment/Plan: Assessment: Plan: 12/03/17 15:07 Psychosis/mood: Improving. Will add Abilify at 1mg and monitor. 12/06/17 15:50 Psychosis/Mood: Doing poorly without meds. Will monitor for now, repeat Emeds if necessary. Will discuss meds further with pt tomorrow and if she continues to refuse voluntary PO antipsychotic medications, will petition for COM. This is not ideal due to her seeing a private psychiatrist in the community and not therefore being able to transfer certification or meds at d/c. 12/07/17 16:24 Psychosis/Mood: No change, perhaps worse today. Need to proceed with involuntary meds as she is not improving without an antipsychotic medication. 12/08/17 14:30 Psychosis/Mood: Remains quite ill. Will [facility]: E-meds. Letter sent for [facility]. 12/09/17 14:14 Psychosis/Mood: Improved with several doses of Zyprexa. I have requested second opinion from Dr. Hsieh regarding further E-meds. In process of scheduling involuntary med hearing. Will [facility], likely restart E-meds after second opinion. 12/10/17 14:50 Psychosis/Mood: Some improvement. Remains quite ill. CCM. 12/14/17 13:34 Psychosis/Mood: Continued gradual improvement. CCM with increase in Abilify. 12/15/17 12:42 Psychosis/Mood: Remains quite ill. Will [facility]. Day #2 on increased Abilify dose. Continue to build therapeutic alliance. 12/16/17 20:47 Psychosis: REmains quite psychotic. Will increase Abilify to 5mg, monitor. 12/17/17 16:17 Psychosis: Slow improvement. Will increase Abilify to 5mg, monitor. 12/20/17 14:09 Psychosis: Remains quite psychotic. Will increase Abilify further, monitor. I will call pt's mother to touch base about the Maintena. Will give in 24-36 hours after observing tolerability of increased oral dose. 12/21/17 17:25 Psychosis: Remains actively psychotic. [facility]. Will give Maintena tomorrow. 12/22/17 16:46 Psychosis: No change. Received EDMONDSON today. Hope to see improvement. Will d/c prazosin as she continues to consistently refuse this and write for PRN propranolol in case she experiences akathisia. Will decrease PO dose of Abilify to 5mg. 12/23/17 10:51 Psychosis: Improved. Tolerating Maintena well. [facility]. 12/24/17 16:17 Psychosis: Slow improvement. Remains psychotic. [facility]. 12/27/17 11:15 Psychosis: Doing much better overall. Will convene family meeting for d/c planning. Start gabapentin. Subjective: Pt seen, discussed with staff. She agrees to interview in Treatment Team meeting. She continues to improve. Allowed visit from family for the first time this weekend. States this went well. She is now agreeable to returning to parents' home after d/c and having a family meeting prior to d/c. C/o "akathisia", feeling restless at times. Good effect from propranolol. Requests gabapentin as she has previously discussed this with Dr. Posada. Reviewed the risks, benefits and alternatives of this with her. Objective: Vital Signs Temp Pulse Resp BP Pulse Ox 36.8 C 61 16 101/55 L 99 12/27/17 06:00 12/27/17 06:00 12/27/17 06:00 12/27/17 07:08 12/27/17 06:00 MSE: Adequately groomed, pleasant and coop. Affect is euthymic, more stable. Mood is "Pretty good, not depressed any more." TP is generally linear. TC reveals some ongoing erotomanic and grandiose delusions, but she is able to redirect herself from this at one point. Denies AH's and does not seem to be attending to IS. - Time Spent With Patient Time Spent With Patient: 25" ICD10 Worksheet Patient Problems: Problems Problem Status Onset Bipolar affective, manic, severe w/ psych Acute Cannabis use disorder, severe, dependence Acute Conversion disorder Acute Histrionic behavior Acute Migraine Acute Panic attacks Acute
--- NOTE | 2017-12-27 11:13 | ASMTCMCOM ---
CM Note CM Note Notes: CC called [facility] at to confirm family meeting for 12/29 at 11:30am. No answer, left all necessary return contact information. Client continues to do better on the unit than previous days. Over the week, client was able to meet with her family and have an enjoyable meeting. Client appears to be alert, semi-focused, goal oriented (to a degree), affect is appropriate for situation while displaying a pleasant demeanor. Client denies any anxiety, depression, AVH and/or S/I or H/I. Client participated in treatment team meeting today and preformed well and interacting with the team in an appropriate manner. Provider to adjust some of her medications as well as wait on client's family meeting before discharge.* Date Signed: 12/27/2017 11:13 AM Electronically Signed By:Kong Rangel
[2017-12-27] MEDS: GABAPENTIN 100 MG CAP PO SCH ×2 (13:11→17:43)
[2017-12-27] MEDS: MELATONIN 3 MG TAB PO PRN (20:45)
[2017-12-27] MEDS: ARIPiprazole 5 MG TAB PO SCH (20:46)
[2017-12-27] MEDS: DIAZEPAM 2 MG TAB PO SCH (20:46)
[2017-12-27] MEDS: LITHIUM CARBONATE ER 300 MG TAB PO SCH (20:46)
--- NOTE | 2017-12-28 08:26 | ASMTCMCOM ---
CM Note CM Note Notes: CC contacted [facility] at to see if she and other family members could participate in a family meeting scheduled for tomorrow with client, doctor and CC. MOC, noted some small "concerns," and requested to speak to the doctor first before having client brought in to the family meeting. Also, MO noted, that "I will need to confirm with my first to see if we can [both] make it to the meeting." MO suggested she will contact this verse writer once a decision has been made. CC will inform provider. Tentative family meeting scheduled for 12/29 at 11:30am* Date Signed: 12/28/2017 08:25 AM Electronically Signed By:Kong Rangel
[2017-12-28] MEDS: GABAPENTIN 100 MG CAP PO SCH ×4 (09:10→20:38)
[2017-12-28] MEDS: diphenhydrAMINE 25 MG CAP PO PRN ×2 (11:28→20:42)
--- NOTE | 2017-12-28 16:42 | SOAPPROG ---
SOAP Progress Note Assessment/Plan: Assessment: Plan: 12/03/17 15:07 Psychosis/mood: Improving. Will add Abilify at 1mg and monitor. 12/06/17 15:50 Psychosis/Mood: Doing poorly without meds. Will monitor for now, repeat Emeds if necessary. Will discuss meds further with pt tomorrow and if she continues to refuse voluntary PO antipsychotic medications, will petition for COM. This is not ideal due to her seeing a private psychiatrist in the community and not therefore being able to transfer certification or meds at d/c. 12/07/17 16:24 Psychosis/Mood: No change, perhaps worse today. Need to proceed with involuntary meds as she is not improving without an antipsychotic medication. 12/08/17 14:30 Psychosis/Mood: Remains quite ill. Will [facility]: E-meds. Letter sent for [facility]. 12/09/17 14:14 Psychosis/Mood: Improved with several doses of Zyprexa. I have requested second opinion from Dr. Hsieh regarding further E-meds. In process of scheduling involuntary med hearing. Will [facility], likely restart E-meds after second opinion. 12/10/17 14:50 Psychosis/Mood: Some improvement. Remains quite ill. CCM. 12/14/17 13:34 Psychosis/Mood: Continued gradual improvement. CCM with increase in Abilify. 12/15/17 12:42 Psychosis/Mood: Remains quite ill. Will [facility]. Day #2 on increased Abilify dose. Continue to build therapeutic alliance. 12/16/17 20:47 Psychosis: REmains quite psychotic. Will increase Abilify to 5mg, monitor. 12/17/17 16:17 Psychosis: Slow improvement. Will increase Abilify to 5mg, monitor. 12/20/17 14:09 Psychosis: Remains quite psychotic. Will increase Abilify further, monitor. I will call pt's mother to touch base about the Maintena. Will give in 24-36 hours after observing tolerability of increased oral dose. 12/21/17 17:25 Psychosis: Remains actively psychotic. [facility]. Will give Maintena tomorrow. 12/22/17 16:46 Psychosis: No change. Received [place] today. Hope to see improvement. Will d/c prazosin as she continues to consistently refuse this and write for PRN propranolol in case she experiences akathisia. Will decrease PO dose of Abilify to 5mg. 12/23/17 10:51 Psychosis: Improved. Tolerating Maintena well. [facility]. 12/24/17 16:17 Psychosis: Slow improvement. Remains psychotic. [facility]. 12/27/17 11:15 Psychosis: Doing much better overall. Will convene family meeting for d/c planning. Start gabapentin. 12/28/17 16:54 Psychosis: Continued improved overall. [facility]. Family meeting tomorrow. Will finalize d/c plan. Subjective: Pt seen, discussed with staff. Reports being ready to go home. Upset that she hasn't heard from her "boyfriend" yet. She agrees to family meeting tomorrow. No recent acting out. She states she continues to hear voices and asks what dose of antipsychotic will make that go away. She also states, "I know I have bipolar disorder and the lithium is treating that. I also know I have to take an antipsychotic to treat the voices and delusions. I've never done that before. Never just started talking to myself. I know it was when the jerald in the ambulance gave me the shot of Haldol. That started it." She continues to report "akathisia" but is not noted to be particularly restless. She does pace the halls at times. Bilateral hand tremors persist unchanged. Objective: Vital Signs Temp Pulse Resp BP Pulse Ox 36.8 C 80 12 108/68 100 12/28/17 11:15 12/28/17 11:15 12/28/17 11:15 12/28/17 11:15 12/28/17 11:15 MSE: Calm, coop. Affect is euthymic, stable, approp., somewhat anxious. Mood is "good." TP is generally linear. TC reveals continued erotomanic delusions, AH's. Denies SI/HI/. - Time Spent With Patient Time Spent With Patient: 15" ICD10 Worksheet Patient Problems: Problems Problem Status Onset Bipolar affective, manic, severe w/ psych Acute Cannabis use disorder, severe, dependence Acute Conversion disorder Acute Histrionic behavior Acute Migraine Acute Panic attacks Acute
[2017-12-28] MEDS: PROPRANOLOL HCL 10 MG TAB PO PRN ×2 (17:34→20:38)
[2017-12-28] MEDS: LITHIUM CARBONATE ER 300 MG TAB PO SCH (20:37)
[2017-12-28] MEDS: DIAZEPAM 2 MG TAB PO SCH (20:38)
[2017-12-28] MEDS: ARIPiprazole 5 MG TAB PO SCH (20:38)
[2017-12-28] MEDS: MELATONIN 3 MG TAB PO PRN (20:42)
[2017-12-29] MEDS: GABAPENTIN 100 MG CAP PO SCH (13:22)
--- NOTE | 2017-12-29 13:42 | ASMTBHFAM ---
Notes Note: Notes: CC participated in a family meeting with client, client's MOC & FOC as well as provider. Doctor provided all necessary information to all parties regarding medications and other therapies. CC spend additional time speaking to client and parents regarding moving forward and transitioning from the hospital setting, etc. Parents have agreed to accept client back home, etc. Objectively client is improving with current medication regiment and therapies. Client appears calmer, focused, less delusional, affect is appropriate for situation Overall, family meeting went very well. Client is projected to be on the unit through the unit. Date Signed: 12/29/2017 01:42 PM Electronically Signed By:Kong Rangel
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
[2017-12-29] MEDS: GABAPENTIN 300 MG CAP PO SCH ×2 (16:44→20:27)
[2017-12-29] MEDS: PROPRANOLOL HCL 10 MG TAB PO PRN (17:48)
[2017-12-29] MEDS: LITHIUM CARBONATE ER 300 MG TAB PO SCH (20:27)
[2017-12-29] MEDS: DIAZEPAM 2 MG TAB PO SCH (20:27)
[2017-12-29] MEDS: ARIPiprazole 5 MG TAB PO SCH (20:27)
[2017-12-30] MEDS: GABAPENTIN 300 MG CAP PO SCH ×3 (05:51→17:07)
[2017-12-30] MEDS: diphenhydrAMINE 25 MG CAP PO PRN (05:55)
--- NOTE | 2017-12-30 14:24 | ASMTCMCOM ---
CM Note CM Note Notes: Client continues to slowly improve on the unit. Client limited some of her interactions today with staff and peers.* Date Signed: 12/30/2017 02:23 PM Electronically Signed By:Kong Rangel
--- NOTE | 2017-12-30 15:49 | SOAPPROG ---
SOAP Progress Note Assessment/Plan: Assessment: Plan: 12/03/17 15:07 Psychosis/mood: Improving. Will add Abilify at 1mg and monitor. 12/06/17 15:50 Psychosis/Mood: Doing poorly without meds. Will monitor for now, repeat Emeds if necessary. Will discuss meds further with pt tomorrow and if she continues to refuse voluntary PO antipsychotic medications, will petition for COM. This is not ideal due to her seeing a private psychiatrist in the community and not therefore being able to transfer certification or meds at d/c. 12/07/17 16:24 Psychosis/Mood: No change, perhaps worse today. Need to proceed with involuntary meds as she is not improving without an antipsychotic medication. 12/08/17 14:30 Psychosis/Mood: Remains quite ill. Will [facility]: E-meds. Letter sent for [facility]. 12/09/17 14:14 Psychosis/Mood: Improved with several doses of Zyprexa. I have requested second opinion from Dr. Hsieh regarding further E-meds. In process of scheduling involuntary med hearing. Will [facility], likely restart E-meds after second opinion. 12/10/17 14:50 Psychosis/Mood: Some improvement. Remains quite ill. CCM. 12/14/17 13:34 Psychosis/Mood: Continued gradual improvement. CCM with increase in Abilify. 12/15/17 12:42 Psychosis/Mood: Remains quite ill. Will [facility]. Day #2 on increased Abilify dose. Continue to build therapeutic alliance. 12/16/17 20:47 Psychosis: REmains quite psychotic. Will increase Abilify to 5mg, monitor. 12/17/17 16:17 Psychosis: Slow improvement. Will increase Abilify to 5mg, monitor. 12/20/17 14:09 Psychosis: Remains quite psychotic. Will increase Abilify further, monitor. I will call pt's mother to touch base about the Maintena. Will give in 24-36 hours after observing tolerability of increased oral dose. 12/21/17 17:25 Psychosis: Remains actively psychotic. [facility]. Will give Maintena tomorrow. 12/22/17 16:46 Psychosis: No change. Received [facility] today. Hope to see improvement. Will d/c prazosin as she continues to consistently refuse this and write for PRN propranolol in case she experiences akathisia. Will decrease PO dose of Abilify to 5mg. 12/23/17 10:51 Psychosis: Improved. Tolerating Maintena well. [facility]. 12/24/17 16:17 Psychosis: Slow improvement. Remains psychotic. [facility]. 12/27/17 11:15 Psychosis: Doing much better overall. Will convene family meeting for d/c planning. Start gabapentin. 12/28/17 16:54 Psychosis: Continued improved overall. [facility]. Family meeting tomorrow. Will finalize d/c plan. 12/29/17 15:33 Psychosis: Continued gradual improvement. I discussed with her parents the possibility of an emerging thought d/o, specifically Schizoaffective D/o. They are appropriate about this, sad. Discussed course of treatment and they are supportive of her returning home, they just want her to be able to care for herself and be safe around family. Further improvement in auditory hallucinations such that they do not interfere with communication or reasoning/ reality testing and further titration of gabapentin are necessary prior to leaving hospital. 12/30/17 15:49 Psychosis: Continued improvement. [facility]. Subjective: Pt seen, discussed with staff. Pleasant and interactive. Accepting of staying in the hospital longer. States, "I don't know if I'm ready or not. I want the talking to go away and I don't want to do anything drastic." She continues to calm, though also continues to c/o restlessness. She states, "I don't know if it's real akathisia or me just worrying about it." Objective: Vital Signs Temp Pulse Resp BP Pulse Ox 37.0 C 69 16 92/59 L 98 12/30/17 06:00 12/30/17 06:00 12/30/17 06:00 12/30/17 06:00 12/30/17 06:00 MSE: Well-groomed, pleasant and coop. Affect is bright, stable. Mood is "good." TP is generally linear with some continued tangentiality, but much improved overall. TC reveals continued erotomanic delusions, though less prominent. Has gained insight into somatic preoccupations/delusions. AH's persist, "better." - Time Spent With Patient Time Spent With Patient: 25" ICD10 Worksheet Patient Problems: Problems Problem Status Onset Bipolar affective, manic, severe w/ psych Acute Cannabis use disorder, severe, dependence Acute Conversion disorder Acute Histrionic behavior Acute Migraine Acute Panic attacks Acute
[2017-12-30] MEDS: PROPRANOLOL HCL 10 MG TAB PO PRN ×2 (16:10→20:59)
[2017-12-30] MEDS: LITHIUM CARBONATE ER 300 MG TAB PO SCH (20:54)
[2017-12-30] MEDS: ARIPiprazole 5 MG TAB PO SCH (20:55)
[2017-12-30] MEDS: DIAZEPAM 2 MG TAB PO SCH (20:55)
[2017-12-30] MEDS: MELATONIN 3 MG TAB PO PRN (20:59)
[2017-12-31] MEDS: GABAPENTIN 300 MG CAP PO SCH ×3 (07:10→18:09)
--- NOTE | 2017-12-31 11:38 | ASMTCMCOM ---
CM Note CM Note Notes: Doris is doing much better. She was well groomed and her affect is bright. She was able to engage in conversation in an organized matter. She discussed her goals for her follow up treatment in the community. She reported that she feels more stable. She seems to be more introspective about her Bipolar and anxiety issues. She reported that she had lunch with her father yesterday and that it has been productive. Her mother will be coming to visit her today at noon. Date Signed: 12/31/2017 11:37 AM Electronically Signed By:Nelly Madera
[2017-12-31] MEDS: ACETAMINOPHEN 325 MG TAB PO PRN ×2 (13:11→18:09)
[2017-12-31] MEDS: DIAZEPAM 2 MG TAB PO SCH (21:05)
[2017-12-31] MEDS: ARIPiprazole 5 MG TAB PO SCH (21:05)
[2017-12-31] MEDS: LITHIUM CARBONATE ER 300 MG TAB PO SCH (21:05)
[2017-12-31] MEDS: MELATONIN 3 MG TAB PO PRN (21:07)
[2018-01-01] MEDS: GABAPENTIN 300 MG CAP PO SCH ×3 (05:52→17:04)
--- NOTE | 2018-01-01 07:45 | SOAPPROG ---
SOAP Progress Note Assessment/Plan: Assessment: Plan: 12/03/17 15:07 Psychosis/mood: Improving. Will add Abilify at 1mg and monitor. 12/06/17 15:50 Psychosis/Mood: Doing poorly without meds. Will monitor for now, repeat Emeds if necessary. Will discuss meds further with pt tomorrow and if she continues to refuse voluntary PO antipsychotic medications, will petition for COM. This is not ideal due to her seeing a private psychiatrist in the community and not therefore being able to transfer certification or meds at d/c. 12/07/17 16:24 Psychosis/Mood: No change, perhaps worse today. Need to proceed with involuntary meds as she is not improving without an antipsychotic medication. 12/08/17 14:30 Psychosis/Mood: Remains quite ill. Will [facility]: E-meds. Letter sent for [facility]. 12/09/17 14:14 Psychosis/Mood: Improved with several doses of Zyprexa. I have requested second opinion from Dr. Hsieh regarding further E-meds. In process of scheduling involuntary med hearing. Will [facility], likely restart E-meds after second opinion. 12/10/17 14:50 Psychosis/Mood: Some improvement. Remains quite ill. CCM. 12/14/17 13:34 Psychosis/Mood: Continued gradual improvement. CCM with increase in Abilify. 12/15/17 12:42 Psychosis/Mood: Remains quite ill. Will [facility]. Day #2 on increased Abilify dose. Continue to build therapeutic alliance. 12/16/17 20:47 Psychosis: REmains quite psychotic. Will increase Abilify to 5mg, monitor. 12/17/17 16:17 Psychosis: Slow improvement. Will increase Abilify to 5mg, monitor. 12/20/17 14:09 Psychosis: Remains quite psychotic. Will increase Abilify further, monitor. I will call pt's mother to touch base about the Maintena. Will give in 24-36 hours after observing tolerability of increased oral dose. 12/21/17 17:25 Psychosis: Remains actively psychotic. [facility]. Will give Maintena tomorrow. 12/22/17 16:46 Psychosis: No change. Received [place] today. Hope to see improvement. Will d/c prazosin as she continues to consistently refuse this and write for PRN propranolol in case she experiences akathisia. Will decrease PO dose of Abilify to 5mg. 12/23/17 10:51 Psychosis: Improved. Tolerating Maintena well. [facility]. 12/24/17 16:17 Psychosis: Slow improvement. Remains psychotic. [facility]. 12/27/17 11:15 Psychosis: Doing much better overall. Will convene family meeting for d/c planning. Start gabapentin. 12/28/17 16:54 Psychosis: Continued improved overall. [facility]. Family meeting tomorrow. Will finalize d/c plan. 12/29/17 15:33 Psychosis: Continued gradual improvement. I discussed with her parents the possibility of an emerging thought d/o, specifically Schizoaffective D/o. They are appropriate about this, sad. Discussed course of treatment and they are supportive of her returning home, they just want her to be able to care for herself and be safe around family. Further improvement in auditory hallucinations such that they do not interfere with communication or reasoning/ reality testing and further titration of gabapentin are necessary prior to leaving hospital. 12/30/17 15:49 Psychosis: Continued improvement. [facility]. 01/01/18 07:46 Psychosis: Continued gradual improvement. [facility]. Subjective: LATE ENTRY FOR 12/01/17. Pt seen, discussed with staff. Pleasant and interactive. Participating in all groups and worked with CC to arrange f/u. Pleased with effect of gabapentin. Eager to d/c to home. Objective: Vital Signs Temp Pulse Resp BP Pulse Ox 36.9 C 78 14 102/57 L 98 01/01/18 06:00 01/01/18 06:00 01/01/18 06:00 01/01/18 06:00 01/01/18 06:00 MSE: Calm, coop. Grooming is better. Affect is bright, stable, approp. Mood is "good." TP generally linear with fewer excursions. TC reveals continued erotomanic delusions, though less intrusive. AH's are "better." - Time Spent With Patient Time Spent With Patient: 25" ICD10 Worksheet Patient Problems: Problems Problem Status Onset Bipolar affective, manic, severe w/ psych Acute Cannabis use disorder, severe, dependence Acute Conversion disorder Acute Histrionic behavior Acute Migraine Acute Panic attacks Acute
[2018-01-01] MEDS: ACETAMINOPHEN 325 MG TAB PO PRN ×2 (08:51→12:26)
--- NOTE | 2018-01-01 14:53 | ASMTBHDC ---
Notes Note: Notes: The patient anticipates discharging on Wednesday, 01/03. She requested to speak with the provider regarding her fibromyalgia; she would like to change her medication. The patient inquired about her discharge appointments; this gag writer followed up with JERRELL and Yazan Posada MD by phone and email, requesting appointments and confirmation. The patient was observed visiting with her mother; this seemed supportive as evidenced by the mood and affect of the patient following the visit. Date Signed: 01/01/2018 02:53 PM Electronically Signed By:Tyesha Kumar
--- NOTE | 2018-01-01 16:10 | SOAPPROG ---
SOAP Progress Note Assessment/Plan: Assessment: Most recent note from Dr. Dumont: 12/27/17 11:15 Psychosis: Doing much better overall. Will convene family meeting for d/c planning. Start gabapentin. 12/28/17 16:54 Psychosis: Continued improved overall. CCM. Family meeting tomorrow. Will finalize d/c plan. 12/29/17 15:33 Psychosis: Continued gradual improvement. I discussed with her parents the possibility of an emerging thought d/o, specifically Schizoaffective D/o. They are appropriate about this, sad. Discussed course of treatment and they are supportive of her returning home, they just want her to be able to care for herself and be safe around family. Further improvement in auditory hallucinations such that they do not interfere with communication or reasoning/ reality testing and further titration of gabapentin are necessary prior to leaving hospital. 12/30/17 15:49 Psychosis: Continued improvement. CCM. 01/01/18 07:46 Psychosis: Continued gradual improvement. [facility]CM. Subjective: LATE ENTRY FOR 12/01/17. Pt seen, discussed with staff. Pleasant and interactive. Participating in all groups and worked with CC to arrange f/u. Pleased with effect of gabapentin. Eager to d/c to home. PLAN: 01/01/18 16:06 1. Patient requests ibuprofen for muscle aches d/t "my fibromyalgia." 2. Patient is significantly improved from last time MD saw her 2 weekends ago. She is not responding to AH and is able to interact with MD, staff and MOC during family visit appropriately. 3. Patient ate 80% of her meals today. 4. CCM Subjective: Patient presents much calmer, more appropriate, logical and coherent. She had pleasant visit with her MOC. She is well-groomed, wearing clean, new clothes. She is present in milieu and has been attending groups instead of isolating in her room. She is compliant with meds. Objective: Vital Signs Temp Pulse Resp BP Pulse Ox 36.9 C 78 14 102/57 L 98 01/01/18 06:00 01/01/18 06:00 01/01/18 06:00 01/01/18 06:00 01/01/18 06:00 MSE: Affect: Euthymic Mood: "OK" TP: More organized, logical and coherent TC : Denies any SI/HI Perception: Denies any AH/VH Insight/Judgment: Improved - Time Spent With Patient Time Spent With Patient: 15" - Pending Discharge Pending Discharge Within 24 Hours: No Pending Discharge Within 48 Hours: No ICD10 Worksheet Patient Problems: Problems Problem Status Onset Bipolar affective, manic, severe w/ psych Acute Cannabis use disorder, severe, dependence Acute Conversion disorder Acute Histrionic behavior Acute Migraine Acute Panic attacks Acute
[2018-01-01] MEDS: IBUPROFEN 200 MG TAB PO PRN (17:07)
[2018-01-01] MEDS: DIAZEPAM 2 MG TAB PO SCH (21:04)
[2018-01-01] MEDS: ARIPiprazole 5 MG TAB PO SCH (21:04)
[2018-01-01] MEDS: LITHIUM CARBONATE ER 300 MG TAB PO SCH (21:05)
[2018-01-01] MEDS: MELATONIN 3 MG TAB PO PRN (21:06)
[2018-01-01] MEDS: PROPRANOLOL HCL 10 MG TAB PO PRN (21:28)
[2018-01-02] MEDS: IBUPROFEN 200 MG TAB PO PRN ×3 (00:34→14:48)
[2018-01-02] MEDS: MELATONIN 3 MG TAB PO PRN ×2 (00:34→21:31)
[2018-01-02] MEDS: GABAPENTIN 300 MG CAP PO SCH ×3 (05:50→16:55)
[2018-01-02] MEDS: PROPRANOLOL HCL 10 MG TAB PO PRN ×2 (09:49→11:07)
--- NOTE | 2018-01-02 14:18 | SOAPPROG ---
SOAP Progress Note Assessment/Plan: Assessment: Most recent note from Dr. Dumont: 12/27/17 11:15 Psychosis: Doing much better overall. Will convene family meeting for d/c planning. Start gabapentin. 12/28/17 16:54 Psychosis: Continued improved overall. CCM. Family meeting tomorrow. Will finalize d/c plan. 12/29/17 15:33 Psychosis: Continued gradual improvement. I discussed with her parents the possibility of an emerging thought d/o, specifically Schizoaffective D/o. They are appropriate about this, sad. Discussed course of treatment and they are supportive of her returning home, they just want her to be able to care for herself and be safe around family. Further improvement in auditory hallucinations such that they do not interfere with communication or reasoning/ reality testing and further titration of gabapentin are necessary prior to leaving hospital. 12/30/17 15:49 Psychosis: Continued improvement. CCM. 01/01/18 07:46 Psychosis: Continued gradual improvement. CCM. Subjective: LATE ENTRY FOR 12/01/17. Pt seen, discussed with staff. Pleasant and interactive. Participating in all groups and worked with CC to arrange f/u. Pleased with effect of gabapentin. Eager to d/c to home. PLAN: 01/01/18 16:06 1. Patient requests ibuprofen for muscle aches d/t "my fibromyalgia." 2. Patient is significantly improved from last time MD saw her 2 weekends ago. She is not responding to AH and is able to interact with MD, staff and MOC during family visit appropriately. 3. Patient ate 80% of her meals today. 4. [facility] PLAN: 01/02/18 14:15 1. Patient c/o "akathisia" this AM, initially only took 5mg of Propranolol, but later asked for another 5mg. 2. Patient reports Motrin is helping with muscle aches. 3. Ate > 75% of meals. 4. [facility] Subjective: Patient reported "akathisia" this AM. MD observed patient sitting down to eat breakfast and lunch, and sitting at table playing cards and other games with peers. She did not appear restless or agitated. She took 5mg Propranolol x 2 with good effect. She was also c/o muscle aches which she described as "my fibromyalgia." She took Motrin 400mg which she says is helpful. Objective: Vital Signs Temp Pulse Resp BP Pulse Ox 36.6 C 77 14 132/76 H 97 01/02/18 06:00 01/02/18 11:07 01/02/18 06:00 01/02/18 11:07 01/02/18 06:00 MSE: Affect: Euthymic Mood: "Good" TP: Goal-directed TC: Denies any SI/HI Insight/Judgment: Poor, but much improved - Time Spent With Patient Time Spent With Patient: 15" - Pending Discharge Pending Discharge Within 24 Hours: No Pending Discharge Within 48 Hours: No ICD10 Worksheet Patient Problems: Problems Problem Status Onset Bipolar affective, manic, severe w/ psych Acute Cannabis use disorder, severe, dependence Acute Conversion disorder Acute Histrionic behavior Acute Migraine Acute Panic attacks Acute
[2018-01-02] MEDS: ACETAMINOPHEN 325 MG TAB PO PRN (19:50)
[2018-01-02] MEDS: LITHIUM CARBONATE ER 300 MG TAB PO SCH (21:30)
[2018-01-02] MEDS: DIAZEPAM 2 MG TAB PO SCH (21:30)
[2018-01-02] MEDS: ARIPiprazole 5 MG TAB PO SCH (21:30)
[2018-01-03] MEDS: GABAPENTIN 300 MG CAP PO SCH ×3 (06:09→17:58)
--- NOTE | 2018-01-03 12:11 | ASMTCMCOM ---
CM Note CM Note Notes: CC called MOC regarding family meeting with provider set for tomorrow at 11:30am.* Parents agreed to the time and meeting is set. CC will notify provider.* Date Signed: 01/03/2018 12:11 PM Electronically Signed By:Kong Rangel
[2018-01-03] MEDS: IBUPROFEN 200 MG TAB PO PRN (14:54)
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
[2018-01-03] MEDS: ACETAMINOPHEN 325 MG TAB PO PRN (17:59)
[2018-01-03] MEDS: MELATONIN 3 MG TAB PO PRN (20:35)
[2018-01-03] MEDS: LITHIUM CARBONATE ER 300 MG TAB PO SCH (20:35)
[2018-01-03] MEDS ORDERED: ARIPiprazole 2 MG TAB PO SCH (21:00)
[2018-01-04] MEDS: GABAPENTIN 300 MG CAP PO SCH ×2 (06:11→12:52)
[2018-01-04] MEDS: IBUPROFEN 200 MG TAB PO PRN ×2 (06:31→12:52)
[2018-01-04 06:52] VITALS: BP 93/51
[2018-01-04] MEDS: ACETAMINOPHEN 325 MG TAB PO PRN (09:48)
== END 2018-01-04 13:28 | disposition home or self-care (01) | DRG 885 ==
LOC: BBEH 17:45
PROVIDERS: ADMIT Psychiatry & Neurology Psychiatry; ATTEND Psychiatry & Neurology Psychiatry
DX: F31.64 Bipolar disorder, current episode mixed, severe, with psychotic features (principal); R63.4 Abnormal weight loss; R29.2 Abnormal reflex; L68.0 Hirsutism; T43.506A Underdosing of unspecified antipsychotics and neuroleptics, initial encounter; Z23 Encounter for immunization
CPT/HCPCS: G0008; J0401; J1200; J1630; J2060